=== PATIENT | male | born 1995 | race American Indian/Alaskan Native ===

== ENCOUNTER 2020-04-16 16:16 | Emergency (ER) | payer SELFPAY ==
[2020-04-16 16:37] VITALS: BP 136/74
--- NOTE | 2020-04-16 18:33 | Emergency Department Report ---
- General Chief complaint: Skin/Abscess/Foreign Body Stated complaint: ABSCESS BUTTOCK Time Seen by Provider: 04/16/20 17:58 Source: patient Mode of arrival: Ambulatory Limitations: No Limitations - History of Present Illness Initial comments: Patient is a 25-year-old male who presents emergency room with complaints of recurrent gluteal abscess. He states that 2 months ago he had an incision and drainage performed at [facility]. He states that he is still noticing small amounts of drainage. He denies any increase in pain or increase in swelling. He denies any fever or vomiting. He states that it has improved since he initially had it but states he just still notices the drainage. No past medical history. No allergies to medications. - Related Data Previous Rx's Medication Instructions Recorded Last Taken Type Doxycycline Hyclate [Doxycycline 100 mg PO BID 7 Days #14 tablet 04/16/20 Unknown Rx Hyclate TAB] Allergies Allergy/AdvReac Type Severity Reaction Status Date / Time No Known Allergies Allergy Unverified 04/16/20 16:37 Abscess Boil HPI - HPI Chief Complaint: Skin/Abscess/Foreign Body Stated Complaint: ABSCESS BUTTOCK Time Seen by Provider: 04/16/20 17:58 Home Medications: Previous Rx's Medication Instructions Recorded Last Taken Type Doxycycline Hyclate [Doxycycline 100 mg PO BID 7 Days #14 tablet 04/16/20 Unknown Rx Hyclate TAB] Allergies/Adverse Reactions: Allergies Allergy/AdvReac Type Severity Reaction Status Date / Time No Known Allergies Allergy Unverified 04/16/20 16:37 ED Review of Systems ROS: Stated complaint: ABSCESS BUTTOCK Other details as noted in HPI Comment: All other systems reviewed and negative ED Past Medical Hx - Social History Smoking Status: Current Every Day Smoker Substance Use Type: Alcohol - Medications Home Medications: Home Medications Medication Instructions Recorded Confirmed Last Taken Type Doxycycline Hyclate [Doxycycline 100 mg PO BID 7 Days #14 tablet 04/16/20 Unknown Rx Hyclate TAB] ED Physical Exam - General Limitations: No Limitations General appearance: alert, in no apparent distress - Head Head exam: Present: atraumatic, normocephalic - Eye Eye exam: Present: normal appearance - ENT ENT exam: Present: mucous membranes moist - Rectal Rectal exam: Present: other (product development assistant: denise, there is a small 2 cm area of induration present to the right gluteal region, there is already two openings present, able to manually express small amount of drainage, no obvious significant area of flutuance, does not involve the perirectal region or the perineum/scrotum region) - Neurological Exam Neurological exam: Present: alert, oriented X3 - Psychiatric Psychiatric exam: Present: normal affect, normal mood - Skin Skin exam: Present: warm, dry ED Course Vital Signs 04/16/20 16:33 Temperature 97.8 F Pulse Rate 90 Respiratory 20 Rate Blood Pressure 136/74 O2 Sat by Pulse 98 Oximetry ED Medical Decision Making - Medical Decision Making Patient is a 25-year-old male who presents emergency room with complaints of recurrent gluteal abscess. He states that 2 months ago he had an incision and drainage performed at [facility]. He states that he is still noticing small amounts of drainage. He denies any increase in pain or increase in swelling. He denies any fever or vomiting. He states that it has improved since he initially had it but states he just still notices the drainage. No past medical history. No allergies to medications. VSS. on exam: product development assistant: denise, there is a small 2 cm area of induration present to the right gluteal region, there is already two openings present, able to manually express small amount of drainage, no obvious significant area of flutuance, does not involve the perirectal region or the perineum/scrotum region. It appears to already have openings with small amount of drainage, does not need I&D at this time, no significant surrounding cellulitis. Discussed with patient that he would need to have the area reexamined within the next 2 to 3 days. Patient given prescription for doxycycline. Advised patient Please take medication as prescribed. Please do warm compresses 3-5 times a day. Please soak and Epson salt. Follow-up with a primary care doctor. Follow-up with a general surgeon. Return to emergency room immediately for any new or worsening symptoms. Critical care attestation.: If time is entered above; I have spent that time in minutes in the direct care of this critically ill patient, excluding procedure time. ED Disposition Clinical Impression: Gluteal abscess Disposition: DC-01 TO HOME OR SELFCARE Is pt being admited?: No Does the pt Need Aspirin: No Condition: Stable Instructions: Abscess (ED) Additional Instructions: Please take medication as prescribed. Please do warm compresses 3-5 times a day. Please soak and Epson salt. Follow-up with a primary care doctor. Follow-up with a general surgeon. Return to emergency room immediately for any new or worsening symptoms. Prescriptions: Doxycycline Hyclate [Doxycycline Hyclate TAB] 100 mg PO BID 7 Days #14 tablet Referrals: GERI CM MD [Staff Physician] - 2-3 Days [facility] [Provider Group] - 2-3 Days NIKI MARINELLI DO [Staff Physician] - 2-3 Days Forms: Work/School Release Form(ED) Time of Disposition: 18:27 Print Language: NEPALI
== END 2020-04-16 18:40 | disposition home or self-care (01) ==
LOC: ED 16:16
DX: L02.31 Cutaneous abscess of buttock (principal); F17.200 Nicotine dependence, unspecified, uncomplicated; Z79.899 Other long term (current) drug therapy
CPT/HCPCS: 99282

== ENCOUNTER 2020-06-22 15:15 | Emergency (ER) | payer SELFPAY ==
[2020-06-22 15:33] VITALS: BP 122/87
--- NOTE | 2020-06-22 19:18 | Emergency Department Report ---
Abscess Boil HPI - HPI Chief Complaint: Skin/Abscess/Foreign Body Stated Complaint: ABCESS Time Seen by Provider: 06/22/20 18:49 Duration: 2 Days Location: Other (left buttock) Severity: Mild History: Yes Pain, No Fever, No Purulent Drainage, No Numbness, No Foreign Body, No Previous History, No Insect Bite HPI: This is a 25-year-old male nontoxic, well nourished in appearance, no acute signs of distress presents to the ED with c/o of pain with some swelling to right sided buttock area x 2 days. Patient denies any pus or drainage. Patient denies any fever, chills, nausea, vomiting, chest pain, shortness of breath, headache or stiff neck. Patient denies any allergies or significant past medical history. Home Medications: Previous Rx's Medication Instructions Recorded Last Taken Type Doxycycline Hyclate [Doxycycline 100 mg PO BID 7 Days #14 tablet 04/16/20 Unknown Rx Hyclate TAB] Amoxicillin/K Clav Tab [Augmentin 1 tab PO Q12HR #20 tab 06/22/20 Unknown Rx 875 mg] Allergies/Adverse Reactions: Allergies Allergy/AdvReac Type Severity Reaction Status Date / Time No Known Allergies Allergy Unverified 04/16/20 16:37 ED Review of Systems ROS: Stated complaint: ABCESS Other details as noted in HPI Constitutional: denies: chills, fever Eyes: denies: eye pain, eye discharge, vision change ENT: denies: ear pain, throat pain Respiratory: denies: cough, shortness of breath, wheezing Cardiovascular: denies: chest pain, palpitations Endocrine: no symptoms reported Gastrointestinal: denies: abdominal pain, nausea, diarrhea Genitourinary: denies: urgency, dysuria Musculoskeletal: denies: back pain, joint swelling, arthralgia Skin: denies: rash, lesions Neurological: denies: headache, weakness, paresthesias Psychiatric: denies: anxiety, depression Hematological/Lymphatic: denies: easy bleeding, easy bruising ED Past Medical Hx - Past Medical History Previous Medical History?: No - Surgical History Past Surgical History?: No - Social History Smoking Status: Current Every Day Smoker Substance Use Type: Alcohol - Medications Home Medications: Home Medications Medication Instructions Recorded Confirmed Last Taken Type Doxycycline Hyclate [Doxycycline 100 mg PO BID 7 Days #14 tablet 04/16/20 Unknown Rx Hyclate TAB] Amoxicillin/K Clav Tab [Augmentin 1 tab PO Q12HR #20 tab 06/22/20 Unknown Rx 875 mg] ED Abscess Boil Physical Exam - Exam General: Vital signs noted. No distress. Alert and acting appropriately. Front/Back of Body, Lg (Color): 1 - 1 cm swelling and tenderness. No induration or flutance noted on exam. Size: 1 cm Exam: Yes Tenderness, Yes Normal Neurologic Exam, Yes Normal Circulation, No Fluctuance, No Surrounding Cellulites/Erythema, No Lymphangitis, No Crepitation, No Heart Murmur ED Course Vital Signs 06/22/20 15:31 Temperature 99.0 F Pulse Rate 80 Respiratory 18 Rate Blood Pressure 122/87 [Right] O2 Sat by Pulse 96 Oximetry - Reevaluation(s) Reevaluation #1: 06/22/20 19:15 Patient is speaking in full sentences with no signs of distress noted. Critical care attestation.: If time is entered above; I have spent that time in minutes in the direct care of this critically ill patient, excluding procedure time. ED Medical Decision Making - Medical Decision Making This is a 25-year-old male that presents with right buttock abscess formation. Patient is stable and was examined by me. There is no induration, fluctuance. There is slight swelling that is about 1 cm but is hard. I will discharge patient with clindamycin. Patient was educated of the abscess formation and to return to emergency room as was possible if abscess does occur which needs to be lanced. Patient was referred to Follow-up with a primary care doctor in 3-5 days or if symptoms worsen and continue return to emergency room as soon as possible. At time of discharge, the patient does not seem toxic or ill in appearance. No acute signs of distress noted. Patient agrees to discharge treatment plan of care. No further questions noted by the patient. ED Disposition Clinical Impression: Abscess of buttock, right Disposition: DC-01 TO HOME OR SELFCARE Is pt being admited?: No Does the pt Need Aspirin: No Condition: Stable Instructions: Skin Abscess, [id number] Additional Instructions: Follow-up with a primary care doctor in 3-5 days or if symptoms worsen and continue return to emergency room as soon as possible. Prescriptions: Amoxicillin/K Clav Tab [Augmentin 875 mg] 1 tab PO Q12HR #20 tab Referrals: PRIMARY CAREMD [Primary Care Provider] - 3-5 Days GERI CM MD [Staff Physician] - 3-5 Days Forms: Work/School Release Form(ED) Time of Disposition: 19:26
== END 2020-06-22 20:15 | disposition home or self-care (01) ==
LOC: ED 15:15
DX: L02.31 Cutaneous abscess of buttock (principal); F17.200 Nicotine dependence, unspecified, uncomplicated
CPT/HCPCS: 99282

== ENCOUNTER 2020-08-30 15:21 | Emergency (ER) | payer SELFPAY ==
[2020-08-30 15:36] VITALS: BP 119/92
--- NOTE | 2020-08-30 15:57 | Emergency Department Report ---
ED General Adult HPI - General Chief complaint: Skin/Abscess/Foreign Body Stated complaint: ABCESS ON BUTTOCK/PAIN Time Seen by Provider: 08/30/20 15:47 Source: patient Mode of arrival: Ambulatory Limitations: No Limitations - History of Present Illness Initial comments: This very pleasant 25-year-old male presents the emergency department chief complaint of a draining wound on his buttocks. Patient reports he had a similar wound 6 months ago that required incision and drainage. He denies any associated fever, chills, night sweats, headache, dizziness, blurry vision, nausea,, diarrhea, chest pain or shortness of breath or any other associated symptoms. He does report he has had rectal intercourse recently. He denies any bleeding. He denies any discharge. - Related Data Previous Rx's Medication Instructions Recorded Last Taken Type Doxycycline Hyclate [Doxycycline 100 mg PO BID 7 Days #14 tablet 04/16/20 Unknown Rx Hyclate TAB] Amoxicillin/K Clav Tab [Augmentin 1 tab PO Q12HR #20 tab 06/22/20 Unknown Rx 875 mg] Clindamycin [Clindamycin CAP] 300 mg PO Q8H #30 cap 08/30/20 Unknown Rx Naproxen [Naprosyn TAB] 500 mg PO BID #20 tablet 08/30/20 Unknown Rx Allergies Allergy/AdvReac Type Severity Reaction Status Date / Time No Known Allergies Allergy Unverified 04/16/20 16:37 ED Review of Systems ROS: Stated complaint: ABCESS ON BUTTOCK/PAIN Other details as noted in HPI Comment: All other systems reviewed and negative Constitutional: denies: chills, fever Eyes: denies: eye pain, eye discharge, vision change ENT: denies: ear pain, throat pain Respiratory: denies: cough, shortness of breath, wheezing Cardiovascular: denies: chest pain, palpitations Endocrine: no symptoms reported Gastrointestinal: denies: abdominal pain, nausea, diarrhea Genitourinary: denies: urgency, dysuria Musculoskeletal: denies: back pain, joint swelling, arthralgia Skin: denies: rash, lesions Neurological: denies: headache, weakness, paresthesias Psychiatric: denies: anxiety, depression Hematological/Lymphatic: denies: easy bleeding, easy bruising ED Past Medical Hx - Past Medical History Previous Medical History?: No - Surgical History Past Surgical History?: No - Social History Smoking Status: Never Smoker Substance Use Type: None - Medications Home Medications: Home Medications Medication Instructions Recorded Confirmed Last Taken Type Doxycycline Hyclate [Doxycycline 100 mg PO BID 7 Days #14 tablet 04/16/20 Unknown Rx Hyclate TAB] Amoxicillin/K Clav Tab [Augmentin 1 tab PO Q12HR #20 tab 06/22/20 Unknown Rx 875 mg] Clindamycin [Clindamycin CAP] 300 mg PO Q8H #30 cap 08/30/20 Unknown Rx Naproxen [Naprosyn TAB] 500 mg PO BID #20 tablet 08/30/20 Unknown Rx ED Physical Exam - General Limitations: No Limitations General appearance: alert, in no apparent distress - Head Head exam: Present: atraumatic, normocephalic - Eye Eye exam: Present: normal appearance, PERRL, EOMI Pupils: Present: normal accommodation - ENT ENT exam: Present: normal exam, normal orophraynx, mucous membranes moist - Neck Neck exam: Present: normal inspection, full ROM. Absent: tenderness, meningismus - Respiratory Respiratory exam: Present: normal lung sounds bilaterally. Absent: respiratory distress, wheezes, rales, rhonchi, stridor - Cardiovascular Cardiovascular Exam: Present: regular rate, normal rhythm, normal heart sounds. Absent: systolic murmur, diastolic murmur, rubs, gallop - GI/Abdominal GI/Abdominal exam: Present: soft, normal bowel sounds. Absent: distended, tenderness, guarding, rebound, rigid - Rectal Rectal exam: Present: other (There is a area of induration just laterally to the rectum on the right. There is no open wounds. There is no drainage. There is no fluctuance. There are no hemorrhoids.) - Extremities Exam Extremities exam: Present: normal inspection - Back Exam Back exam: Present: normal inspection - Neurological Exam Neurological exam: Present: alert, oriented X3 - Psychiatric Psychiatric exam: Present: normal affect, normal mood - Skin Skin exam: Present: warm, dry, intact, normal color. Absent: rash ED Course Vital Signs 08/30/20 15:33 Temperature 98.3 F Pulse Rate 61 Respiratory 18 Rate Blood Pressure 119/92 O2 Sat by Pulse 100 Oximetry ED Medical Decision Making - Medical Decision Making Patient nontoxic in no acute distress. Vital signs are stable. Abdominal exam is benign. Patient had some mild possible cellulitis versus early abscess versus fistula the perirectal area on the right. I did offer to do imaging on this however the patient politely declined and preferred antibiotics, sitz bath and outpatient follow-up with colorectal surgeon. Agree with this plan and the patient was educated about return precaution including fever, severe abdominal pain, or any other changing worsening symptoms. He verbalized understand the diagnosis, treatment plan and follow-up instructions all his questions were answered. - Differential Diagnosis abscess, cellulitis, fistula Critical care attestation.: If time is entered above; I have spent that time in minutes in the direct care of this critically ill patient, excluding procedure time. ED Disposition Clinical Impression: Rectal pain, Cellulitis of buttock, right Disposition: DC-01 TO HOME OR SELFCARE Is pt being admited?: No Condition: Stable Instructions: Cellulitis, Adult Prescriptions: Clindamycin [Clindamycin CAP] 300 mg PO Q8H #30 cap Naproxen [Naprosyn TAB] 500 mg PO BID #20 tablet Referrals: TOSIN ERAZO MD [Referring] - 3-5 Days Time of Disposition: 15:56
== END 2020-08-30 16:44 | disposition home or self-care (01) ==
LOC: ED 15:21
DX: L03.317 Cellulitis of buttock (principal); K62.89 Other specified diseases of anus and rectum; Z79.899 Other long term (current) drug therapy
CPT/HCPCS: 99282

== ENCOUNTER 2020-10-26 16:59 | Emergency (ER) | payer SELFPAY ==
[2020-10-26 18:17] VITALS: BP 120/77
--- NOTE | 2020-10-26 18:44 | Event Note ---
ED Screening Note Date of service: 10/26/20 Time: 18:35 ED Screening Note: 25-year-old male patient with recurrent abscesses presents to emergency department complaints of multiple abscesses to his gluteal area for the last week. Patient states he has not been on antibiotics in over 1 month. Last antibiotic was clindamycin. He has been instructed to follow-up with a surgeon but has not done so due to financial constraints. General: Awake, appropriately interactive, no acute distress. Neck: Supple. Full range of motion intact. Cardiovascular: Normal peripheral perfusion. Pulmonary: No respiratory distress. Patient is speaking normally without use of accessory muscles. Skin: No apparent rashes or lesions. Neurological: No facial asymmetry. Speech is clear. Follows commands. Patient is alert and oriented. Musculoskeletal: Moves all four extremities spontaneously with normal range of motion. Psych: Cooperative. Appropriate mood and affect. I have greeted and performed a focused rapid initial assessment of this patient. A comprehensive ED assessment and evaluation of the patient, analysis of all test results, and completion of the medical decision-making process will be conducted by additional ED providers. This initial assessment/diagnostic orders/clinical plan/treatment(s) is/are subject to change based on patients health status, clinical progression and re-assessment. Further treatment and workup at subsequent clinical provider's discretion. Patient/guardian urged not to elope from the ED as their condition may be serious if not clinically assessed and managed.
== END 2020-10-26 19:30 | disposition left against medical advice (07) ==
LOC: ED 16:59
DX: L02.31 Cutaneous abscess of buttock (principal); Z53.21 Procedure and treatment not carried out due to patient leaving prior to being seen by health care provider

== ENCOUNTER 2020-10-27 16:44 | Emergency (ER) | payer SELFPAY ==
[2020-10-27 17:28] VITALS: BP 122/82
--- NOTE | 2020-10-27 18:54 | Emergency Department Report ---
- General Chief complaint: Skin/Abscess/Foreign Body Stated complaint: DRAIN IN ABSCESS Time Seen by Provider: 10/27/20 18:45 Source: patient Mode of arrival: Ambulatory Limitations: No Limitations - History of Present Illness Initial comments: 25-year-old male presents to the ER today complaining of a tender swollen area to his left buttocks. Patient reports history of abscesses in the same area. He states that the one on the left buttocks flared up about a week and a half ago. States that it started as a small bump but has since an increase in size and has become painful. He denies drainage from that area. Patient states that he has a draining area to his right inner buttocks but he has had this intermittently for the past 1 year. He states that the drainage has been blood- tinged yellow. He states that he was told in the past that he needs surgery on that site but has not been able to follow-up. He denies any pain to the area just the drainage. He denies any fever or chills. He denies any known history of MRSA. He denies any other significant past history. MD complaint: abscess/boil -: week(s) (1.5) - Related Data Previous Rx's Medication Instructions Recorded Last Taken Type Doxycycline Hyclate [Doxycycline 100 mg PO BID 7 Days #14 tablet 04/16/20 Un known Rx Hyclate TAB] Amoxicillin/K Clav Tab [Augmentin 1 tab PO Q12HR #20 tab 06/22/20 Unknown Rx 875 mg] Naproxen [Naprosyn TAB] 500 mg PO BID #20 tablet 08/30/20 Unknown Rx Clindamycin [Clindamycin CAP] 300 mg PO Q6H #40 cap 10/27/20 Unknown Rx Ibuprofen [Motrin] 800 mg PO Q8HR PRN #30 tablet 10/27/20 Unknown Rx Allergies Allergy/AdvReac Type Severity Reaction Status Date / Time No Known Allergies Allergy Verified 10/26/20 18:11 Abscess Boil HPI - HPI Chief Complaint: Skin/Abscess/Foreign Body Stated Complaint: DRAIN IN ABSCESS Time Seen by Provider: 10/27/20 18:45 Home Medications: Previous Rx's Medication Instructions Recorded Last Taken Type Doxycycline Hyclate [Doxycycline 100 mg PO BID 7 Days #14 tablet 04/16/20 Unknown Rx Hyclate TAB] Amoxicillin/K Clav Tab [Augmentin 1 tab PO Q12HR #20 tab 06/22/20 Unknown Rx 875 mg] Naproxen [Naprosyn TAB] 500 mg PO BID #20 tablet 08/30/20 Unknown Rx Clindamycin [Clindamycin CAP] 300 mg PO Q6H #40 cap 10/27/20 Unknown Rx Ibuprofen [Motrin] 800 mg PO Q8HR PRN #30 tablet 10/27/20 Unknown Rx Allergies/Adverse Reactions: Allergies Allergy/AdvReac Type Severity Reaction Status Date / Time No Known Allergies Allergy Verified 10/26/20 18:11 ED Review of Systems ROS: Stated complaint: DRAIN IN ABSCESS Other details as noted in HPI Comment: All other systems reviewed and negative Eyes: denies: eye pain, eye discharge, vision change ENT: denies: ear pain, throat pain, dental pain, hearing loss, epistaxis Respiratory: denies: cough, shortness of breath, wheezing Cardiovascular: denies: chest pain, palpitations Gastrointestinal: denies: abdominal pain, nausea, diarrhea Genitourinary: denies: urgency, dysuria Musculoskeletal: denies: back pain, joint swelling, arthralgia Skin: lesions, other (Abscess) ED Past Medical Hx - Past Medical History Previous Medical History?: No - Surgical History Past Surgical History?: No - Social History Smoking Status: Never Smoker Substance Use Type: None - Medications Home Medications: Home Medications Medication Instructions Recorded Confirmed Last Taken Type Doxycycline Hyclate [Doxycycline 100 mg PO BID 7 Days #14 tablet 04/16/20 Unknown Rx Hyclate TAB] Amoxicillin/K Clav Tab [Augmentin 1 tab PO Q12HR #20 tab 06/22/20 Unknown Rx 875 mg] Naproxen [Naprosyn TAB] 500 mg PO BID #20 tablet 08/30/20 Unknown Rx Clindamycin [Clindamycin CAP] 300 mg PO Q6H #40 cap 10/27/20 Unknown Rx Ibuprofen [Motrin] 800 mg PO Q8HR PRN #30 tablet 10/27/20 Unknown Rx ED Physical Exam - General Limitations: No Limitations General appearance: alert, in no apparent distress - Respiratory Respiratory exam: Present: normal lung sounds bilaterally. Absent: respiratory distress - Cardiovascular Cardiovascular Exam: Present: regular rate, normal rhythm, normal heart sounds - GI/Abdominal GI/Abdominal exam: Present: soft. Absent: distended, tenderness, guarding - Rectal Rectal exam: Present: other (Approximately 5 cm x 2 cm tender indurated area noted to left perianal; no apparent cellulitis; does not extend into the rectum; right perianal area shows 2 small scarred area from previous I&D; no induration or fluctuance; no tenderness to palpation; no drainage) - Neurological Exam Neurological exam: Present: alert, oriented X3, CN II-XII intact, normal gait ED Course Vital Signs 10/27/20 17:25 Temperature 98.5 F Pulse Rate 96 H Respiratory 16 Rate Blood Pressure 122/82 O2 Sat by Pulse 97 Oximetry - I & D Left Buttocks Type of Procedure: Simple Site: left le-anal area Blade Size: 11 I & D Procedure: betadine prep, gauze wick placed Progress: Patient tolerated the procedure well without any complications. Critical care attestation.: If time is entered above; I have spent that time in minutes in the direct care of this critically ill patient, excluding procedure time. ED Disposition Clinical Impression: Perirectal abscess Disposition: - TO HOME OR SELFCARE Is pt being admited?: No Does the pt Need Aspirin: No Condition: Stable Instructions: Skin Abscess, [id number] Additional Instructions: Take the antibiotics as prescribed. Return to ED or f/u with PCP in 2-3 days for packing removal. Return sooner if area is worsening. Prescriptions: Clindamycin [Clindamycin CAP] 300 mg PO Q6H #40 cap Ibuprofen [Motrin] 800 mg PO Q8HR PRN #30 tablet PRN Reason: Pain Referrals: GERI CM MD [Staff Physician] - 3-5 Days Forms: Work/School Release Form(ED) Time of Disposition: 20:13
[2020-10-27] MEDS ORDERED: LIDOCAINE (1%) 10 MG/1 ML VIAL 20 ML MDV INFILTRATI ONE (19:52)
== END 2020-10-27 20:29 | disposition home or self-care (01) ==
LOC: ED 16:44
DX: K61.1 Rectal abscess (principal); Z79.899 Other long term (current) drug therapy
CPT/HCPCS: 87116; 99282

== ENCOUNTER 2020-10-29 19:21 | Emergency (ER) | payer SELFPAY ==
[2020-10-29 20:41] VITALS: BP 103/69
--- NOTE | 2020-10-29 20:50 | Emergency Department Report ---
Chief Complaint: Laceration/Recheck/Suture Stated Complaint: WOUND CHECK;ABSCESS Time Seen by Provider: 10/29/20 20:42 - HPI History of Present Illness: 25-year-old male patient presents emergency department for wound reevaluation. Patient states he underwent incision and drainage 2 days ago and was instructed to return to the emergency department in 48 hours to have the packing removed. States his pain has improved. He has been compliant with his antibiotic medica tion regimen. No new complaints. - ROS Review of Systems: GENERAL: Negative for fever. CARDIOVASCULAR: Negative for chest pain. PULMONARY: Negative for shortness of breath. GASTROINTESTINAL: Negative for abdominal pain. MUSCULOSKELETAL: Negative for back pain. NEUROLOGICAL: Negative for headache. INTEGUMENTARY: Positive for abscess. - Exam Vital Signs: Vital Signs 10/29/20 20:40 Temperature 98.3 F Pulse Rate 67 Respiratory 20 Rate Blood Pressure 103/69 [Right] O2 Sat by Pulse 99 Oximetry Physical Exam: General: Awake, appropriately interactive, no acute distress. Neck: Supple. Full range of motion intact. Cardiovascular: Normal peripheral perfusion. Pulmonary: No respiratory distress. Patient is speaking normally without use of accessory muscles. 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 Left perirectal abscess status post incision and drainage with wound packing in place. Neurological: No facial asymmetry. Speech is clear. Follows commands. Patient is alert and oriented. Musculoskeletal: Moves all four extremities spontaneously with normal range of motion. Psych: Cooperative. Appropriate mood and affect. MSE screening note: Focused history and physical exam performed. Due to findings the following was ordered: ED Medical Decision Making - Medical Decision Making Patient presents emergency department for wound recheck. Underwent incision and drainage of perirectal abscess 2 days ago. No new complaints. States his pain has improved since undergoing the procedure. Packing removed without complications. Patient was advised that the infection may continue to drain on its own. Emphasized importance of continuing to adhere to previously prescribed antibiotic regimen and follow-up with primary care provider this week. Patient expressed understanding is agreeable to plan of care. Strict return precautions provided. ED Disposition for MSE Clinical Impression: Perirectal abscess Disposition: MED SCREENING EXAM-LEFT Is pt being admited?: No Does the pt Need Aspirin: No Condition: Stable Instructions: Anorectal Abscess Additional Instructions: Continue taking antibiotics as directed. Apply warm compresses to the affected area 3 times daily. Warm Sitz baths recommended. Follow-up with Dr. Bowser, primary care provider, within 3 days. Call tomorrow to schedule an appointment. Return to the emergency department immediately for new or worsening symptoms. Referrals: GERI BOWSER MD [Staff Physician] - 3-5 Days Time of Disposition: 20:50
== END 2020-10-29 21:00 | disposition left against medical advice (07) ==
LOC: ED 19:21
DX: K61.1 Rectal abscess (principal); Z53.21 Procedure and treatment not carried out due to patient leaving prior to being seen by health care provider

== ENCOUNTER 2021-02-07 17:34 | Inpatient (IN) | payer OTHER ==
--- NOTE | 2021-02-07 18:05 | Event Note ---
ED Screening Note Date of service: 02/07/21 Time: 18:04 ED Screening Note: 26-year-old male patient presents to the emergency department via EMS with complaints of right-sided chest pain starting approximately 1 hour ago. No recent fall, trauma, or injury. Describes the pain as "sharp," non-radiating, localized to the right side of his chest, worse with deep inhalation. No history of hypertension, diabetes, hyperlipidemia. No history of tobacco use. No family history of early heart disease. No venous thromboembolism risk factors identified on history. General: Awake, appropriately interactive, no acute distress. Neck: Supple. Full range of motion intact. Cardiovascular: Normal peripheral perfusion. Pulmonary: No respiratory distress. Patient is speaking normally without use of accessory muscles. Skin: No apparent rashes or lesions. Neurological: No facial asymmetry. Speech is clear. Follows commands. Patient is alert and oriented. Musculoskeletal: Moves all four extremities spontaneously with normal range of motion. Psych: Cooperative. Appropriate mood and affect. EKG and CXR ordered. I have greeted and performed a focused rapid initial assessment of this patient. A comprehensive ED assessment and evaluation of the patient, analysis of all test results, and completion of the medical decision-making process will be conducted by additional ED providers. This initial assessment/diagnostic orders/clinical plan/treatment(s) is/are subject to change based on patients health status, clinical progression and re-assessment. Further treatment and workup at subsequent clinical provider's discretion. Patient/guardian urged not to elope from the ED as their condition may be serious if not clinically assessed and managed.
--- NOTE | 2021-02-07 18:38 | XRay Report ---
CHEST 2 VIEWS INDICATION / CLINICAL INFORMATION: chest pain. COMPARISON: None available. FINDINGS: SUPPORT DEVICES: None. HEART / MEDIASTINUM: No significant abnormality. LUNGS / PLEURA: No significant pulmonary or pleural abnormality. Large left pneumothorax. Minimal rig htward shift of trachea suggestive for tension pneumothorax ADDITIONAL FINDINGS: No significant additional findings. IMPRESSION: 1. Large left pneumothorax IMPORTANT FINDING: Large left pneumothorax with probable mild tension Time of Communication (UNIVERSITY REGISTRAR/CDT): 5:32 PM Central time 02/07/2021 Licensed Practitioner Receiving Report: Dr. Powers Signer Name: Arron Malik MD Signed: 02/07/2021 6:33 PM Workstation Name: [email or web address]
[2021-02-07] MEDS ORDERED: fentaNYL 100 MCG/2 ML INJ IV ONE (18:54)
--- NOTE | 2021-02-07 18:54 | Emergency Department Report ---
ED General Adult HPI - General Chief complaint: Chest Pain Stated complaint: My back hurts, and my left chest hurts PUI?: No Time Seen by Provider: 02/07/21 18:30 Source: patient, EMS ( EMS documentation not available at time of chart dictation ), RN notes reviewed Mode of arrival: Wheelchair Limitations: No Limitations - History of Present Illness Initial comments: The patient is a 26-year-old gentleman. He is not known to myself previously. He states he is right-hand dominant. He denies significant past medical history. He presents to the ER with a complaint of spontaneous left posterior scapular pain, nontraumatic, and left lateral thoracic pain. He denies headache, neck pain, abdominal pain, vomiting, diaphoresis, travel, surgery, immobilization, DVT and pulmonary embolism risk factors. He has never had a pneumothorax before that he is aware of. He has not eaten since last night. He occasionally consumes recreational marijuana. He denies illicit drug use. He denies additional injuries. No additional complaints. -: Sudden Location: back Radiation: other (Left lateral thorax) Quality: aching Consistency: constant Improves with: rest Worsens with: movement Associated Symptoms: denies other symptoms - Related Data Previous Rx's Medication Instructions Recorded Last Taken Type Doxycycline Hyclate [Doxycycline 100 mg PO BID 7 Days #14 tablet 04/16/20 Unknown Rx Hyclate TAB] Amoxicillin/K Clav Tab [Augmentin 1 tab PO Q12HR #20 tab 06/22/20 Unknown Rx 875 mg] Naproxen [Naprosyn TAB] 500 mg PO BID #20 tablet 08/30/20 Unknown Rx Clindamycin [Clindamycin CAP] 300 mg PO Q6H #40 cap 10/27/20 Unknown Rx Ibuprofen [Motrin] 800 mg PO Q8HR PRN #30 tablet 10/27/20 Unknown Rx Allergies Allergy/AdvReac Type Severity Reaction Status Date / Time No Known Allergies Allergy Verified 02/07/21 18:00 ED Review of Systems ROS: Stated complaint: CHEST PAIN Other details as noted in HPI Constitutional: denies: fever Eyes: denies: eye discharge ENT: denies: epistaxis Respiratory: denies: cough Cardiovascular: chest pain Gastrointestinal: denies: nausea, vomiting, diarrhea Musculoskeletal: back pain Psychiatric: anxiety Hematological/Lymphatic: denies: easy bleeding ED Past Medical Hx - Past Medical History Previous Medical History?: No - Surgical History Past Surgical History?: Yes Additional Surgical History: ABSCESS - Social History Smoking Status: Never Smoker Substance Use Type: None - Medications Home Medications: Home Medications Medication Instructions Recorded Confirmed Last Taken Type Doxycycline Hyclate [Doxycycline 100 mg PO BID 7 Days #14 tablet 04/16/20 Unknown Rx Hyclate TAB] Amoxicillin/K Clav Tab [Augmentin 1 tab PO Q12HR #20 tab 06/22/20 Unknown Rx 875 mg] Naproxen [Naprosyn TAB] 500 mg PO BID #20 tablet 08/30/20 Unknown Rx Clindamycin [Clindamycin CAP] 300 mg PO Q6H #40 cap 10/27/20 Unknown Rx Ibuprofen [Motrin] 800 mg PO Q8HR PRN #30 tablet 10/27/20 Unknown Rx ED Physical Exam - General Limitations: No Limitations General appearance: alert, anxious - Head Head exam: Present: atraumatic, normocephalic - Eye Eye exam: Present: normal appearance, EOMI. Absent: nystagmus - ENT ENT exam: Present: normal exam, normal orophraynx, mucous membranes moist, normal external ear exam - Neck Neck exam: Present: normal inspection, full ROM. Absent: tenderness, meningismus - Respiratory Respiratory exam: Present: decreased breath sounds (Decreased breath sounds in the left hemithorax. Breath sounds intact in the right hemithorax). Absent: normal lung sounds bilaterally, respiratory distress, wheezes, rales, rhonchi, stridor, chest wall tenderness - Cardiovascular Cardiovascular Exam: Present: regular rate, normal rhythm, normal heart sounds. Absent: bradycardia, tachycardia, irregular rhythm, systolic murmur, diastolic murmur, rubs, gallop - GI/Abdominal GI/Abdominal exam: Present: soft. Absent: distended, tenderness, guarding, rebound, rigid, pulsatile mass - Rectal Rectal exam: Present: deferred - Extremities Exam Extremities exam: Present: normal inspection, full ROM, other (2+ pulses noted in the bilateral upper and lower extremities. There is no palpable cord. nega tive Homans sign. Muscular compartments are soft. The pelvis is stable.). Absent: pedal edema, calf tenderness - Back Exam Back exam: Present: normal inspection, full ROM. Absent: tenderness, CVA tenderness (R), CVA tenderness (L), paraspinal tenderness, vertebral tenderness - Neurological Exam Neurological exam: Present: alert, oriented X3, other (No facial droop. Tongue midline. Extraocular movements intact bilaterally. Facial sensation intact to light touch in V1, V2, V3 distribution bilaterally. 5 and a 5 strength in 4 extremities. Sensation intact to light touch in 4 extremities.). Absent: motor sensory deficit - Psychiatric Psychiatric exam: Present: anxious - Skin Skin exam: Present: warm, dry, intact, normal color. Absent: rash ED Course Vital Signs 02/07/21 02/07/21 02/07/21 18:02 19:14 19:15 Temperature 98.1 F Pulse Rate 85 75 Pulse Rate [ Intra-Procedure ] Pulse Rate [ Post-Procedure] Pulse Rate [Pre -Procedure] Respiratory 20 15 Rate Respiratory Rate [Intra- Procedure] Respiratory Rate [Post- Procedure] Respiratory Rate [Pre- Procedure] Blood Pressure Blood Pressure [Intra- Procedure] Blood Pressure [Post-Procedure ] Blood Pressure [Pre-Procedure] Blood Pressure 123/73 129/89 [Right] O2 Sat by Pulse 93 100 100 Oximetry O2 Sat by Pulse Oximetry [ Intra-Procedure ] O2 Sat by Pulse Oximetry [Post -Procedure] O2 Sat by Pulse Oximetry [Pre- Procedure] 02/07/21 02/07/21 02/07/21 19:31 19:38 19:45 Temperature Pulse Rate 74 78 Pulse Rate [ 75 Intra-Procedure ] Pulse Rate [ 82 Post-Procedure] Pulse Rate [Pre 74 -Procedure] Respiratory 12 18 Rate Respiratory 14 Rate [Intra- Procedure] Respiratory 12 Rate [Post- Procedure] Respiratory 21 Rate [Pre- Procedure] Blood Pressure 129/89 139/98 Blood Pressure 130/74 [Intra- Procedure] Blood Pressure 130/75 [Post-Procedure ] Blood Pressure 139/98 [Pre-Procedure] Blood Pressure [Right] O2 Sat by Pulse 100 100 Oximetry O2 Sat by Pulse 100 Oximetry [ Intra-Procedure ] O2 Sat by Pulse 100 Oximetry [Post -Procedure] O2 Sat by Pulse 100 Oximetry [Pre- Procedure] 02/07/21 02/07/21 02/07/21 20:01 20:19 20:31 Temperature Pulse Rate 102 H 81 72 Pulse Rate [ Intra-Procedure ] Pulse Rate [ Post-Procedure] Pulse Rate [Pre -Procedure] Respiratory 24 22 16 Rate Respiratory Rate [Intra- Procedure] Respiratory Rate [Post- Procedure] Respiratory Rate [Pre- Procedure] Blood Pressure 130/74 122/77 118/79 Blood Pressure [Intra- Procedure] Blood Pressure [Post-Procedure ] Blood Pressure [Pre-Procedure] Blood Pressure [Right] O2 Sat by Pulse 100 100 100 Oximetry O2 Sat by Pulse Oximetry [ Intra-Procedure ] O2 Sat by Pulse Oximetry [Post -Procedure] O2 Sat by Pulse Oximetry [Pre- Procedure] 02/07/21 20:45 Temperature Pulse Rate 69 Pulse Rate [ Intra-Procedure ] Pulse Rate [ Post-Procedure] Pulse Rate [Pre -Procedure] Respiratory 16 Rate Respiratory Rate [Intra- Procedure] Respiratory Rate [Post- Procedure] Respiratory Rate [Pre- Procedure] Blood Pressure 120/78 Blood Pressure [Intra- Procedure] Blood Pressure [Post-Procedure ] Blood Pressure [Pre-Procedure] Blood Pressure [Right] O2 Sat by Pulse 100 Oximetry O2 Sat by Pulse Oximetry [ Intra-Procedure ] O2 Sat by Pulse Oximetry [Post -Procedure] O2 Sat by Pulse Oximetry [Pre- Procedure] - Reevaluation(s) Reevaluation #1: 02/07/21 21:21 Dr Ant Tovar to admit to [facility] with FOOD SAFETY DIRECTOR Slade Rivera - Chest Tube Chest Tube Location: seventh interspace Size of Haitian Tube (cm): 10 (10.2 fr pigtail) Chest Tube Procedure: betadine prep, sterile drapes applied, sterile dressing applied Anesthesia: 1% Lidocaine w/ Epi Volume Anesthetic (ccs): 10 Leal of Air Ripley: Yes Number of Attempts: 1 Tube Drainage: see nurses notes Tube Sutured to Skin: Yes Post Procedure CXR?: Yes Progress: Patient has not eaten since last night. Patient is ASA 1 on examination. He has no contraindications to pigtail placement. Discussed indications, contraindications, risks and benefits of a left-sided Heimlich valve pigtail placement. Patient provided verbal and written informed consent for 10.2 Haitian pigtail placement. We discussed that if this was not successful, he might require large bore chest tube, and a moderate sedation. Informed consent signed. A timeout was performed. Left hemithorax was anesthetized appropriately, please reference procedure note. The left hemithorax was then prepped and draped in typical sterile fashion. This provider applied maximum sterile barrier precautions. 10.2 Haitian pigtail was placed over the superior aspect of the left seventh rib, and the midclavicular line. The tube was advanced, and sutured into place. It is attached to the Heimlich valve, and then to intermittent suction. Postprocedure x-ray demonstrates reinflation of lung. A CT scan of the chest was obtained to better assess placement of the pigtail catheter. After CT scan of the chest was obtained, the pigtail catheter was retracted 5 cm as per radiology recommendation. The patient tolerated the procedure well. No obvious complications ED Medical Decision Making - Lab Data Result diagrams: 02/07/21 19:06 02/07/21 19:06 Vital Signs 02/07/21 02/07/21 02/07/21 18:02 19:14 19:15 Temperature 98.1 F Pulse Rate 85 75 Pulse Rate [ Intra-Procedure ] Pulse Rate [ Post-Procedure] Pulse Rate [Pre -Procedure] Respiratory 20 15 Rate Respiratory Rate [Intra- Procedure] Respiratory Rate [Post- Procedure] Respiratory Rate [Pre- Procedure] Blood Pressure Blood Pressure [Intra- Procedure] Blood Pressure [Post-Procedure ] Blood Pressure [Pre-Procedure] Blood Pressure 123/73 129/89 [Right] O2 Sat by Pulse 93 100 100 Oximetry O2 Sat by Pulse Oximetry [ Intra-Procedure ] O2 Sat by Pulse Oximetry [Post -Procedure] O2 Sat by Pulse Oximetry [Pre- Procedure] 02/07/21 02/07/21 02/07/21 19:31 19:38 19:45 Temperature Pulse Rate 74 78 Pulse Rate [ 75 Intra-Procedure ] Pulse Rate [ 82 Post-Procedure] Pulse Rate [Pre 74 -Procedure] Respiratory 12 18 Rate Respiratory 14 Rate [Intra- Procedure] Respiratory 12 Rate [Post- Procedure] Respiratory 21 Rate [Pre- Procedure] Blood Pressure 129/89 139/98 Blood Pressure 130/74 [Intra- Procedure] Blood Pressure 130/75 [Post-Procedure ] Blood Pressure 139/98 [Pre-Procedure] Blood Pressure [Right] O2 Sat by Pulse 100 100 Oximetry O2 Sat by Pulse 100 Oximetry [ Intra-Procedure ] O2 Sat by Pulse 100 Oximetry [Post -Procedure] O2 Sat by Pulse 100 Oximetry [Pre- Procedure] 02/07/21 02/07/21 02/07/21 20:01 20:19 20:31 Temperature Pulse Rate 102 H 81 72 Pulse Rate [ Intra-Procedure ] Pulse Rate [ Post-Procedure] Pulse Rate [Pre -Procedure] Respiratory 24 22 16 Rate Respiratory Rate [Intra- Procedure] Respiratory Rate [Post- Procedure] Respiratory Rate [Pre- Procedure] Blood Pressure 130/74 122/77 118/79 Blood Pressure [Intra- Procedure] Blood Pressure [Post-Procedure ] Blood Pressure [Pre-Procedure] Blood Pressure [Right] O2 Sat by Pulse 100 100 100 Oximetry O2 Sat by Pulse Oximetry [ Intra-Procedure ] O2 Sat by Pulse Oximetry [Post -Procedure] O2 Sat by Pulse Oximetry [Pre- Procedure] 02/07/21 20:45 Temperature Pulse Rate 69 Pulse Rate [ Intra-Procedure ] Pulse Rate [ Post-Procedure] Pulse Rate [Pre -Procedure] Respiratory 16 Rate Respiratory Rate [Intra- Procedure] Respiratory Rate [Post- Procedure] Respiratory Rate [Pre- Procedure] Blood Pressure 120/78 Blood Pressure [Intra- Procedure] Blood Pressure [Post-Procedure ] Blood Pressure [Pre-Procedure] Blood Pressure [Right] O2 Sat by Pulse 100 Oximetry O2 Sat by Pulse Oximetry [ Intra-Procedure ] O2 Sat by Pulse Oximetry [Post -Procedure] O2 Sat by Pulse Oximetry [Pre- Procedure] Lab Results 02/07/21 02/07/21 02/07/21 Range/Units 19:06 19:06 19:06 WBC 6.6 (4.5-11.0) K/mm3 RBC 4.82 (3.65-5.03) M/mm3 Hgb 15.0 (11.8-15.2) gm/dl Hct 44.6 (35.5-45.6) % MCV 93 (84-94) fl MCH 31 (28-32) pg MCHC 34 (32-34) % RDW 12.3 L (13.2-15.2) % Plt Count 245 (140-440) K/mm3 PT 13.8 (12.2-14.9) Sec. INR 1.01 (0.87-1.13) APTT 29.4 (24.2-36.6) Sec. Sodium 136 L (137-145) mmol/L Potassium 3.9 (3.6-5.0) mmol/L Chloride 100.2 (98-107) mmol/L Carbon Dioxide 24 (22-30) mmol/L Anion Gap 16 mmol/L BUN 5 L (9-20) mg/dL Creatinine 0.9 (0.8-1.3) mg/dL Estimated GFR > 60 ml/min BUN/Creatinine Ratio 6 % Glucose 87 (75-100) mg/dL Calcium 9.1 (8.4-10.2) mg/dL Magnesium 1.80 (1.7-2.3) mg/dL Total Creatine Kinase 158 (55-170) units/L - EKG Data -: EKG Interpreted by Ct EKG shows normal: sinus rhythm Rate: normal - EKG Data When compared to previous EKG there are: previous EKG unavailable 02/07/21 21:00 EKG interpreted at 18: 0 6 PM Sinus rhythm, with a normal P wave axis. Normal intervals, normal axis, borderline atrial enlargement, early repolarization, minimal motion artifact. T his is an abnormal EKG. This is not a STEMI. - Radiology Data Radiology results: report reviewed, image reviewed CT CHEST WITHOUT CONTRAST INDICATION / CLINICAL INFORMATION: Pneumothorax, status post pigtail placement.. TECHNIQUE: Axial CT images were obtained through the chest without contrast. All CT scans at this location are performed using CT dose reduction for ALARA by means of automated exposure control. COMPARISON: Chest x-ray earlier today FINDINGS: HEART: No significant abnormality. THORACIC AORTA: No significant abnormality. MEDIASTINUM and CECILIA: No significant abnormality.No mediastinal hematoma or pneumomediastinum is seen. LUNGS: No acute air space or interstitial disease. Linear atelectasis left upper, lower lobes and lingula. Right lung clear PLEURA: No significant pleural effusion. There is a tiny left pneumothorax along the medial apical pleural measuring 5 mm image 31 ADDITIONAL FINDINGS: The left pigtail chest tube has its tip near the left medial lung apex and could be pulled back about 5 cm for more optimal placement. UPPER ABDOMEN: No significant abnormality. SKELETAL SYSTEM: No significant abnormality. IMPRESSION: 1. No significant abnormality. Signer Name: Arron Malik MD Signed: 02/07/2021 7:41 PM Workstation Name: [facility] CHEST 2 VIEWS INDICATION / CLINICAL INFORMATION: chest pain. COMPARISON: None available. FINDINGS: SUPPORT DEVICES: None. HEART / MEDIASTINUM: No significant abnormality. LUNGS / PLEURA: No significant pulmonary or pleural abnormality. Large left pneumothorax. Minimal rightward shift of trachea suggestive for tension pneumothorax ADDITIONAL FINDINGS: No significant additional findings. IMPRESSION: 1. Large left pneumothorax IMPORTANT FINDING: Large left pneumothorax with probable mild tension Time of Communication (COMBINATION MACHINE TOOL OPERATOR/CDT): 5:32 PM Central time 02/07/2021 Licensed Practitioner Receiving Report: Dr. Powers Signer Name: Arron Malik MD Signed: 02/07/2021 5:33 PM Workstation Name: [facility] CHEST 1 VIEW 02/07/2021 8:05 PM INDICATION / CLINICAL INFORMATION: s/p ptx and chest tube placement. COMPARISON: Chest x-ray 6:15 PM same day FINDINGS: SUPPORT DEVICES: New small bore left chest tube has been placed. HEART / MEDIASTINUM: No significant abnormality. LUNGS / PLEURA: Mild linear atelectasis left lower lobe. Right lung clear. No residual left pneumothorax visualized. ADDITIONAL FINDINGS: No significant additional findings. IMPRESSION: 1. Interval reexpansion of left lung with no visualized pneumothorax after chest tube placement Signer Name: Arron Malik MD Signed: 02/07/2021 7:21 PM Workstation Name: [facility] - Medical Decision Making Differential diagnosis, including but not limited to: Spontaneous pneumothorax, left-sided Assessment and plan: 26-year-old gentleman, who denies DVT and pulmonary emb olism risk factors, who is low risk by Wells criteria for pulmonary embolism, PERC negative, presenting with left-sided spontaneous pneumothorax, treated appropriate with 10.2 Haitian Heimlich valve, postprocedure x-rays and CT scan demonstrate appropriate placement of tube without significant complication (Heimlich valve pigtail catheter retracted 5 cm as per radiology recommendation), and attached to intermittent suction. Contacted pulmonology on-call, Dr. Wallace I discussed the patient's history, physical, pertinent findings. Pulmonology will follow in consultation. Laboratory studies unremarkable at this time. Hospital physician, Dr. Ant Winters to admit to [facility] I discussed this plan of care with the patient, who verbalized understanding, and who is agreeable to this plan of care. At the moment, he is resting comfortably on his stretcher, in no acute distress, playing on his cellular phone. He gave consent for the details of his medical care to be discussed with family members, but only pertaining to the left-sided pneumothorax and procedures. Critical care attestation.: If time is entered above; I have spent that time in minutes in the direct care of this critically ill patient, excluding procedure time. ED Disposition Clinical Impression: Spontaneous pneumothorax Disposition: 09 OP ADMIT IP TO THIS HOSP Is pt being admited?: Yes Does the pt Need Aspirin: No Condition: Good Referrals: PRIMARY CARE, [Primary Care Provider] - 3-5 Days
[2021-02-07] MEDS ORDERED: LIDOCAINE 2%/EPINEPHRINE 1:100,000 VIAL (20 ML) INFILTRATI ONE (18:55)
[2021-02-07 19:20] LABS: Hematocrit 44.6 % (35.5-45.6); Mean Corpuscular HGB Conc 34 % (32-34); Mean Corpuscular Volume 93 fl (84-94); Platelet Count 245 K/mm3 (140-440); Red Blood Count 4.82 M/mm3 (3.65-5.03); Red Cell Distribution Width 12.3 % (13.2-15.2)
[2021-02-07 19:27] LABS: INR 1.01 (0.87-1.13)
[2021-02-07 19:28] LABS: Partial Thromboplastin Time 29.4 Sec. (24.2-36.6)
[2021-02-07 19:43] LABS: BUN/Creatinine Ratio 6; Blood Urea Nitrogen 5 mg/dL (9-20); Calcium 9.1 mg/dL (8.4-10.2); Hemolysis Index 13
--- NOTE | 2021-02-07 20:26 | XRay Report ---
CHEST 1 VIEW 02/07/2021 8:05 PM INDICATION / CLINICAL INFORMATION: s/p ptx and chest tube placement. COMPARISON: Chest x-ray 6:15 PM same day FINDINGS: SUPPORT DEVICES: New small bore left chest tube has been placed. HEART / MEDIASTINUM: No significant abnormality. LUNGS / PLEURA: Mild linear atelectasis left lower lobe. Right lung clear. No residual left pneumotho rax visualized. ADDITIONAL FINDINGS: No significant additional findings. IMPRESSION: 1. Interval reexpansion of left lung with no visualized pneumothorax after chest tube placement Signer Name: Arron Malik MD Signed: 02/07/2021 8:21 PM Workstation Name: [id number]
[2021-02-07] MEDS ORDERED: ACETAMINOPHEN 325 MG TAB PO PRN (21:41)
[2021-02-07] MEDS ORDERED: ALBUTEROL 2.5 MG/3 ML NEBU IH PRN (21:41)
[2021-02-07] MEDS ORDERED: ONDANSETRON 4 MG/2 ML INJ IV PRN (21:41)
[2021-02-07] MEDS ORDERED: HYDROmorphone 1 MG/1 ML INJ IV PRN (21:43)
[2021-02-07] MEDS ORDERED: NALOXONE 0.4 MG/1 ML INJ IV PRN (21:43)
--- NOTE | 2021-02-07 22:08 | History and Physical Report ---
History of Present Illness Date of examination: 02/07/21 Date of admission: 02/07/2021 Chief complaint: TRAVIS, chest pain History of present illness: 26 -Spanish male with no significant past medical history who presents to [facility] ED with complaints of left-sided thoracic back pain and difficulty completing. Patient states his symptoms began earlier this morning. He works from home and was sitting at his desk started experiencing sharp intermittent 4/10 thoracic pain. Upon standing and walking down the stairs his pain became more intense (now 8/10) and constant. He noticed that it was getting more difficult for him to breathe, he decided to call EMS for further evaluation and treatment. 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) Family history: no significant family history Medications and Allergies Allergies Allergy/AdvReac Type Severity Reaction Status Date / Time No Known Allergies Allergy Verified 02/07/21 18:00 Home Medications Medication Instructions Recorded Confirmed Last Taken Type Doxycycline Hyclate [Doxycycline 100 mg PO BID 7 Days #14 tablet 04/16/20 Unknown Rx Hyclate TAB] Amoxicillin/K Clav Tab [Augmentin 1 tab PO Q12HR #20 tab 06/22/20 Unknown Rx 875 mg] Naproxen [Naprosyn TAB] 500 mg PO BID #20 tablet 08/30/20 Unknown Rx Clindamycin [Clindamycin CAP] 300 mg PO Q6H #40 cap 10/27/20 Unknown Rx Ibuprofen [Motrin] 800 mg PO Q8HR PRN #30 tablet 10/27/20 Unknown Rx Active Meds: Active Medications Acetaminophen (Acetaminophen 325 Mg Tab) 650 mg PO Q4H PRN PRN Reason: Pain MILD(1-3)/Fever >100.5/LESTER Albuterol (Albuterol 2.5 Mg/3 Ml Nebu) 2.5 mg IH Q3HRT PRN PRN Reason: Shortness Of Breath Heparin Sodium (Porcine) (Heparin 5,000 Unit/1 Ml Vial) 5,000 unit SUB-Q Q12HR KAREN Hydromorphone HCl (Hydromorphone 1 Mg/1 Ml Inj) 0.5 mg IV Q3H PRN PRN Reason: Pain , Severe (7-10) Sodium Chloride (Nacl 0.45% 1000 Ml) 1,000 mls @ 75 mls/hr IV DIRECT KAREN Stop: 02/08/21 12:00 Morphine Sulfate (Morphine 2 Mg/1 Ml Inj) 2 mg IV Q4H PRN PRN Reason: Pain, Moderate (4-6) Naloxone HCl (Naloxone 0.4 Mg/1 Ml Inj) 0.1 mg IV Q2MIN PRN PRN Reason: Res Rate </= 8 or 02 SAT < 92% Ondansetron HCl (Ondansetron 4 Mg/2 Ml Inj) 4 mg IV Q6H PRN PRN Reason: Nausea And Vomiting Sodium Chloride (Sodium Chloride 0.9% 10 Ml Flush Syringe) 10 ml IV BID KAREN Sodium Chloride (Sodium Chloride 0.9% 10 Ml Flush Syringe) 10 ml IV PRN PRN PRN Reason: LINE FLUSH Review of Systems All systems: negative (As stated in HPI) Exam - Physical Exam Narrative exam: Physical exam General appearance: Present: No acute distress, alert and oriented x3, well- developed, well-nourished, adult male - EENT Eyes: Present: PERRL, EOM intact ENT: hearing intact, normal dentition - Neck Neck: Present: supple, normal ROM - Respiratory Respiratory effort: Non-labored Respiratory: Slightly decreased to left, otherwise clear throughout, left-sided chest tube present - Cardiovascular Heart rate: 86 (bpm) Rhythm: Sinus rhythm Heart Sounds: Present: S1 & S2. Absent: rub, click - Extremities Extremities: no ischemia, pulses intact, - Peripheral Assessment Peripheral Pulses: within normal limits - Abdominal General gastrointestinal: soft, non-tender, normal bowel sounds - Integumentary Integumentary: Present: warm, dry - Musculoskeletal Musculoskeletal: Able to move all extremities -Neurological Neurological: CN II-XII intact - Psychiatric Psychiatric: Appropriate for situation ,cooperative - Constitutional Vitals: Temp Pulse Resp BP Pulse Ox 98.1 F 86 13 119/79 99 02/07/21 18:02 02/07/21 21:31 02/07/21 21:31 02/07/21 21:31 02/07/21 21:31 Results - Labs CBC & Chem 7: 02/07/21 19:06 02/07/21 19:06 Labs: Laboratory Last Values WBC 6.6 K/mm3 (4.5-11.0) 02/07/21 19:06 RBC 4.82 M/mm3 (3.65-5.03) 02/07/21 19:06 Hgb 15.0 gm/dl (11.8-15.2) 02/07/21 19:06 Hct 44.6 % (35.5-45.6) 02/07/21 19:06 MCV 93 fl (84-94) 02/07/21 19:06 MCH 31 pg (28-32) 02/07/21 19:06 MCHC 34 % (32-34) 02/07/21 19:06 RDW 12.3 % (13.2-15.2) L 02/07/21 19:06 Plt Count 245 K/mm3 (140-440) 02/07/21 19:06 PT 13.8 Sec. (12.2-14.9) 02/07/21 19:06 INR 1.01 (0.87-1.13) 02/07/21 19:06 APTT 29.4 Sec. (24.2-36.6) 02/07/21 19:06 Sodium 136 mmol/L (137-145) L 02/07/21 19:06 Potassium 3.9 mmol/L (3.6-5.0) 02/07/21 19:06 Chloride 100.2 mmol/L (98-107) 02/07/21 19:06 Carbon Dioxide 24 mmol/L (22-30) 02/07/21 19:06 Anion Gap 16 mmol/L 02/07/21 19:06 BUN 5 mg/dL (9-20) L 02/07/21 19:06 Creatinine 0.9 mg/dL (0.8-1.3) 02/07/21 19:06 Estimated GFR > 60 ml/min 02/07/21 19:06 BUN/Creatinine Ratio 6 % 02/07/21 19:06 Glucose 87 mg/dL (75-100) 02/07/21 19:06 Calcium 9.1 mg/dL (8.4-10.2) 02/07/21 19:06 Magnesium 1.80 mg/dL (1.7-2.3) 02/07/21 19:06 Total Creatine Kinase 158 units/L (55-170) 02/07/21 19:06 - Imaging and Cardiology Imaging and Cardiology: Initial CXR; FINDINGS: SUPPORT DEVICES: None. HEART / MEDIASTINUM: No significant abnormal ity. LUNGS / PLEURA: No significant pulmonary or pleural abnormality. Large left pneumothorax. Minimal rightward shift of trachea suggestive for tension pneumothorax ADDITIONAL FINDINGS: No significant additional findings. IMPRESSION: 1. Large left pneumothorax Repeat CXR: FINDINGS: SUPPORT DEVICES: New small bore left chest tube has been placed. HEART / MEDIASTINUM: No significant abnormality. LUNGS / PLEURA: Mild linear atelectasis left lower lobe. Right lung clear. No residual left pneumothorax visualized. ADDITIONAL FINDINGS: No significant additional findings. IMPRESSION: 1. Interval reexpansion of left lung with no visualized pneumothorax after chest tube placement CT Chest: CT CHEST WITHOUT CONTRAST INDICATION / CLINICAL INFORMATION: Pneumothorax, status post pigtail placement.. TECHNIQUE: Axial CT images were obtained through the chest without contrast. All CT scans at this location are performed using CT dose reduction for ALARA by means of automated exposure control. COMPARISON: Chest x-ray earlier today FINDINGS: HEART: No significant abnormality. THORACIC AORTA: No significant abnormality. MEDIASTINUM and CECILIA: No significant abnormality.No mediastinal hematoma or pneumomediastinum is seen. LUNGS: No acute air space or interstitial disease. Linear atelectasis left upper, lower lobes and lingula. Right lung clear PLEURA: No significant pleural effusion. There is a tiny left pneumothorax along the medial apical pleural measuring 5 mm image 31 ADDITIONAL FINDINGS: The left pigtail chest tube has its tip near the left medial lung apex and could be pulled back about 5 cm for more optimal placement. UPPER ABDOMEN: No significant abnormality. SKELETAL SYSTEM: No significant abnormality. IMPRESSION: 1. No significant abnormality. Signer Name: Arron Malik MD Signed: 02/07/2021 7:41 PM Assessment and Plan Assessment and plan: Spontaneous left-sided pneumothorax -Initial CXR revealed Large left pneumothorax -Chest Tube placed in ED -Repeat CXR showed reexpansion of left lung with no visualized pneumothorax after chest tube placement -CT Chest negative -Supportive care -Pulmonary (Dr. Wallace) consulted in ED with plans to see pt in am -May require op f/u with pulmonary Difficulty in breathing -Secondary to #1 -Has since resolved since placement of chest tube -Presently on room air with saturation of 100% Marijuana use -Reports chronic marijuana use 3 times per week -Counseled for cessation DVT PPX -On Heparin Advance Directives: No VTE prophylaxis?: Chemical, Mechanical Plan of care discussed with patient/family: Yes
[2021-02-07] MEDS: HEPARIN 5,000 UNIT/1 ML VIAL SUB-Q SCH (22:59)
[2021-02-07] MEDS: SODIUM CHLORIDE 0.45% 1000 ML 1,000 ML IV SCH (23:00)
[2021-02-07] MEDS: MORPHINE 2 MG/1 ML INJ IV PRN (23:03)
[2021-02-08] MEDS: HEPARIN 5,000 UNIT/1 ML VIAL SUB-Q SCH ×2 (09:21→22:06)
[2021-02-08] MEDS: SODIUM CHLORIDE 0.45% 1000 ML 1,000 ML IV SCH (09:26)
[2021-02-08] MEDS: MORPHINE 2 MG/1 ML INJ IV PRN ×3 (10:37→20:25)
--- NOTE | 2021-02-08 10:47 | XRay Report ---
CHEST 1 VIEW INDICATION: SHORTNESS OF BREATH. COMPARISON: Yesterday FINDINGS: Support devices: The left chest tube has been retracted by a few centimeters to the level of the aort ic knob. Heart: Within normal limits. Lungs/Pleura: The lungs are generally clear. Segmental atelectasis at the left lung base has resolved . No appreciable pneumothorax. Additional findings: None. IMPRESSION: No acute findings. Signer Name: Chai Avina Jr, MD Signed: 02/08/2021 10:42 AM Workstation Name: [id number]
--- NOTE | 2021-02-08 11:35 | Progress Note ---
Assessment and Plan Assessment and plan: 26 -[place] male with no significant past medical history who presents to [facility] ED with complaints of left-sided thoracic back pain and difficulty completing. Patient states his symptoms began earlier this morning. He works from home and was sitting at his desk started experiencing sharp intermittent 4/10 thoracic pain. Upon standing and walking down the stairs his pain became more intense (now 8/10) and constant. He noticed that it was getting more difficult for him to breathe, he decided to call EMS for further evaluation and treatment. Denies: Fever, chills, cough, headache, abdominal pain, nausea, vomiting diarrhea, constipation, hematochezia, hemoptysis, history of restrictive airway disease, or recent sick contact Chest x-ray: No acute findings. Prior noted left left pneumothorax resolved. Chest tube retracted to the area of the aortic knob Spontaneous left-sided pneumothorax -Initial CXR revealed Large left pneumothorax -Chest Tube placed in ED -Repeat CXR showed reexpansion of left lung with no visualized pneumothorax after chest tube placement -CT Chest negative -Supportive care -Pulmonary (Dr. Wallace) consulted in ED with plans to see pt in am -May require op f/u with pulmonary Difficulty in breathing -Secondary to #1 -Has since resolved since placement of chest tube -Presently on room air with saturation of 100% Marijuana use -Reports chronic marijuana use 3 times per week -Counseled for cessation DVT PPX -On Heparin 02/08: Surgery consulted to assist with management of chest tube. Repeat chest x-ray shows resolution. Continue to manage pain control. Further plan pending surgery evaluation. Counseling provided to the patient on need to quit nicotine use as he states that he smokes some who. He has a substance percentage of nicotine in it. 50 minutes counseling provided History Interval history: Patient seen and examined this morning still with chest pain. Shortness of breath improved. Hospitalist Physical - Physical exam Narrative exam: VITAL SIGNS: Reviewed. GENERAL: The patient appears normally developed, Vital signs as documented. HEAD: No signs of head trauma. EYES: Pupils are equal. Extraocular motions intact. EARS: Hearing grossly intact. MOUTH: Oropharynx is normal. NECK: No adenopathy, no JVD. CHEST: Chest with clear breath sounds bilaterally. Chest tube to the left side dressing in place tube not connected to-. No wheezes, rales, or rhonchi. CARDIAC: Regular rate and rhythm. S1 and S2, without murmurs, gallops, or rubs. VASCULAR: No Edema. Peripheral pulses normal and equal in all extremities. ABDOMEN: Soft, non tender and non distended. No rebound or guarding, and no masses palpated. Bowel Sounds normal. MUSCULOSKELETAL: Good range of motion of all major joints. Extremities without clubbing, cyanosis or edema. NEUROLOGIC EXAM: Alert and oriented x 3 No focal sensory or strength deficits. Speech normal. Follows commands. PSYCHIATRIC: Mood normal. SKIN: detail exam as documented in skin assessment - Constitutional Vitals: Temp Pulse Resp BP Pulse Ox 98.7 F 76 18 127/82 2 L 02/07/21 23:37 02/08/21 03:31 02/08/21 03:03 02/07/21 23:37 02/08/21 03:31 Results - Labs CBC & Chem 7: 02/07/21 19:06 02/07/21 19:06 Labs: Laboratory Last Values WBC 6.6 K/mm3 (4.5-11.0) 02/07/21 19:06 RBC 4.82 M/mm3 (3.65-5.03) 02/07/21 19:06 Hgb 15.0 gm/dl (11.8-15.2) 02/07/21 19:06 Hct 44.6 % (35.5-45.6) 02/07/21 19:06 MCV 93 fl (84-94) 02/07/21 19:06 MCH 31 pg (28-32) 02/07/21 19:06 MCHC 34 % (32-34) 02/07/21 19:06 RDW 12.3 % (13.2-15.2) L 02/07/21 19:06 Plt Count 245 K/mm3 (140-440) 02/07/21 19:06 PT 13.8 Sec. (12.2-14.9) 02/07/21 19:06 INR 1.01 (0.87-1.13) 02/07/21 19:06 APTT 29.4 Sec. (24.2-36.6) 02/07/21 19:06 Sodium 136 mmol/L (137-145) L 02/07/21 19:06 Potassium 3.9 mmol/L (3.6-5.0) 02/07/21 19:06 Chloride 100.2 mmol/L (98-107) 02/07/21 19:06 Carbon Dioxide 24 mmol/L (22-30) 02/07/21 19:06 Anion Gap 16 mmol/L 02/07/21 19:06 BUN 5 mg/dL (9-20) L 02/07/21 19:06 Creatinine 0.9 mg/dL (0.8-1.3) 02/07/21 19:06 Estimated GFR > 60 ml/min 02/07/21 19:06 BUN/Creatinine Ratio 6 % 02/07/21 19:06 Glucose 87 mg/dL (75-100) 02/07/21 19:06 Calcium 9.1 mg/dL (8.4-10.2) 02/07/21 19:06 Magnesium 1.80 mg/dL (1.7-2.3) 02/07/21 19:06 Total Creatine Kinase 158 units/L (55-170) 02/07/21 19:06 Hall/IV: Voiding Method Urinal Active Medications - Current Medications Current Medications: Generic Name Dose Route Start Last Admin Trade Name Freq PRN Reason Stop Dose Admin Acetaminophen 650 mg 02/07/21 21:41 Acetaminophen 325 Mg Tab PO Q4H PRN Pain MILD(1-3)/Fever >100.5/LESTER Albuterol 2.5 mg 02/07/21 21:41 Albuterol 2.5 Mg/3 Ml Nebu IH Q3HRT PRN Shortness Of Breath Heparin Sodium (Porcine) 5,000 unit 02/07/21 22:00 02/08/21 09:21 Heparin 5,000 Unit/1 Ml Vial SUB-Q 5,000 unit Q12HR KAREN Administration Hydromorphone HCl 0.5 mg 02/07/21 21:43 02/08/21 02:34 Hydromorphone 1 Mg/1 Ml Inj IV 0.5 mg Q3H PRN Administration Pain , Severe (7-10) Sodium Chloride 1,000 mls @ 75 mls/hr 02/07/21 22:00 02/08/21 09:26 Nacl 0.45% 1000 Ml IV 02/08/21 12:00 75 mls/hr DIRECT KAREN Administration Morphine Sulfate 2 mg 02/07/21 21:43 02/08/21 10:37 Morphine 2 Mg/1 Ml Inj IV 2 mg Q4H PRN Administration Pain, Moderate (4-6) Naloxone HCl 0.1 mg 02/07/21 21:43 Naloxone 0.4 Mg/1 Ml Inj IV Q2MIN PRN Res Rate </= 8 or 02 SAT < 92% Ondansetron HCl 4 mg 02/07/21 21:41 Ondansetron 4 Mg/2 Ml Inj IV Q6H PRN Nausea And Vomiting Sodium Chloride 10 ml 02/07/21 22:00 02/08/21 09:22 Sodium Chloride 0.9% 10 Ml Flush Syringe IV 10 ml BID KAREN Administration Sodium Chloride 10 ml 02/07/21 21:41 Sodium Chloride 0.9% 10 Ml Flush Syringe IV PRN PRN LINE FLUSH
--- NOTE | 2021-02-08 12:35 | Electrocardiograph Report ---
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
--- NOTE | 2021-02-08 14:26 | Consultation ---
History of Present Illness Consult date: 02/08/21 Reason for consult: other (chest tube management) - History of present illness History of present illness: 26-year-old male who presented to the emergency room on yesterday with a 1 day history of acute shortness of breath and left-sided chest pain. Patient denies any preceding factors such as trauma. He denies ever having these feelings before. In the emergency room patient had a CAT scan which showed a large left- sided pneumothorax with deviation of his trachea to the right. The ED physician placed a chest tube on the left side with prompt reexpansion of his left lung. Currently the patient says that he feels much better, except he has some discomfort where the chest tube is. Patient denies any previous history of any lung disease or pre-existing conditions. 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) Family history: no significant family history Medications and Allergies Allergies Allergy/AdvReac Type Severity Reaction Status Date / Time No Known Allergies Allergy Verified 02/07/21 18:00 Home Medications Medication Instructions Recorded Confirmed Last Taken Type Doxycycline Hyclate [Doxycycline 100 mg PO BID 7 Days #14 tablet 04/16/20 02/08/21 Unknown Rx Hyclate TAB] Amoxicillin/K Clav Tab [Augmentin 1 tab PO Q12HR #20 tab 06/22/20 02/08/21 Unknown Rx 875 mg] Naproxen [Naprosyn TAB] 500 mg PO BID #20 tablet 08/30/20 02/08/21 Unknown Rx Clindamycin [Clindamycin CAP] 300 mg PO Q6H #40 cap 10/27/20 02/08/21 Unknown Rx Ibuprofen [Motrin] 800 mg PO Q8HR PRN #30 tablet 10/27/20 02/08/21 Unknown Rx Active Meds: Active Medications Acetaminophen (Acetaminophen 325 Mg Tab) 650 mg PO Q4H PRN PRN Reason: Pain MILD(1-3)/Fever >100.5/LESTER Albuterol (Albuterol 2.5 Mg/3 Ml Nebu) 2.5 mg IH Q3HRT PRN PRN Reason: Shortness Of Breath Heparin Sodium (Porcine) (Heparin 5,000 Unit/1 Ml Vial) 5,000 unit SUB-Q Q12HR [facility] Last Admin: 02/08/21 09:21 Dose: 5,000 unit Documented by: Hydromorphone HCl (Hydromorphone 1 Mg/1 Ml Inj) 0.5 mg IV Q3H PRN PRN Reason: Pain , Severe (7-10) Last Admin: 02/08/21 02:34 Dose: 0.5 mg Documented by: Morphine Sulfate (Morphine 2 Mg/1 Ml Inj) 2 mg IV Q4H PRN PRN Reason: Pain, Moderate (4-6) Last Admin: 02/08/21 10:37 Dose: 2 mg Documented by: Naloxone HCl (Naloxone 0.4 Mg/1 Ml Inj) 0.1 mg IV Q2MIN PRN PRN Reason: Res Rate </= 8 or 02 SAT < 92% Ondansetron HCl (Ondansetron 4 Mg/2 Ml Inj) 4 mg IV Q6H PRN PRN Reason: Nausea And Vomiting Sodium Chloride (Sodium Chloride 0.9% 10 Ml Flush Syringe) 10 ml IV BID [facility] Last Admin: 02/08/21 09:22 Dose: 10 ml Documented by: Sodium Chloride (Sodium Chloride 0.9% 10 Ml Flush Syringe) 10 ml IV PRN PRN PRN Reason: LINE FLUSH Review of Systems All systems: negative - Respiratory shortness of breath, pain, pain on inspiration Exam Vital Signs Temp Pulse Resp BP Pulse Ox 98.1 F 85 20 123/73 93 02/07/21 18:02 02/07/21 18:02 02/07/21 18:02 02/07/21 18:02 02/07/21 18:02 - General physical appearance Positive: well developed, no distress, no pain - Respiratory Positive: normal expansion, normal respiratory effort, other (Left-sided pigtail catheter chest tube attached to Heimlich valve.) - Cardiovascular Heart Sounds: Present: S1 & S2 - Extremities Extremities: no ischemia Results - Labs 02/07/21 19:06 02/07/21 19:06 Abnormal lab results 02/07/21 02/07/21 Range/Units 19:06 19:06 RDW 12.3 L (13.2-15.2) % Sodium 136 L (137-145) mmol/L BUN 5 L (9-20) mg/dL Diabetes panel 02/07/21 Range/Units 19:06 Sodium 136 L (137-145) mmol/L Potassium 3.9 (3.6-5.0) mmol/L Chloride 100.2 (98-107) mmol/L Carbon Dioxide 24 (22-30) mmol/L BUN 5 L (9-20) mg/dL Creatinine 0.9 (0.8-1.3) mg/dL Glucose 87 (75-100) mg/dL Calcium 9.1 (8.4-10.2) mg/dL Calcium panel 02/07/21 Range/Units 19:06 Calcium 9.1 (8.4-10.2) mg/dL Pituitary panel 02/07/21 Range/Units 19:06 Sodium 136 L (137-145) mmol/L Potassium 3.9 (3.6-5.0) mmol/L Chloride 100.2 (98-107) mmol/L Carbon Dioxide 24 (22-30) mmol/L BUN 5 L (9-20) mg/dL Creatinine 0.9 (0.8-1.3) mg/dL Glucose 87 (75-100) mg/dL Calcium 9.1 (8.4-10.2) mg/dL Adrenal panel 02/07/21 Range/Units 19:06 Sodium 136 L (137-145) mmol/L Potassium 3.9 (3.6-5.0) mmol/L Chloride 100.2 (98-107) mmol/L Carbon Dioxide 24 (22-30) mmol/L BUN 5 L (9-20) mg/dL Creatinine 0.9 (0.8-1.3) mg/dL Glucose 87 (75-100) mg/dL Calcium 9.1 (8.4-10.2) mg/dL - Imaging Chest x-ray: report reviewed, image reviewed (Pneumothorax resolved on chest x- ray from last night, this morning, and CT of the chest last night.) Assessment and Plan 26-year-old male with spontaneous left-sided pneumothorax with resolution status post placement of left-sided chest tube. Afebrile and stable. Will start patient on incentive spirometer and continue chest tube and Heimlich valve. If does well overnight will repeat chest x-ray in a.m. If chest x-ray in a.m. shows continued reexpansion of lung with no signs of pneumothorax will remove chest tube. In the future if patient requires another spontaneous pneumothorax will need to be referred to cardiothoracic surgery for evaluation and work-up for causality and management.
--- NOTE | 2021-02-08 14:41 | Consultation ---
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) Family history: no significant family history Medications and Allergies Allergies Allergy/AdvReac Type Severity Reaction Status Date / Time No Known Allergies Allergy Verified 02/07/21 18:00 Home Medications Medication Instructions Recorded Confirmed Last Taken Type Doxycycline Hyclate [Doxycycline 100 mg PO BID 7 Days #14 tablet 04/16/20 02/08/21 Unknown Rx Hyclate TAB] Amoxicillin/K Clav Tab [Augmentin 1 tab PO Q12HR #20 tab 06/22/20 02/08/21 Un known Rx 875 mg] Naproxen [Naprosyn TAB] 500 mg PO BID #20 tablet 08/30/20 02/08/21 Unknown Rx Clindamycin [Clindamycin CAP] 300 mg PO Q6H #40 cap 10/27/20 02/08/21 Unknown Rx Ibuprofen [Motrin] 800 mg PO Q8HR PRN #30 tablet 10/27/20 02/08/21 Unknown Rx Active Meds: Active Medications Acetaminophen (Acetaminophen 325 Mg Tab) 650 mg PO Q4H PRN PRN Reason: Pain MILD(1-3)/Fever >100.5/LESTER Albuterol (Albuterol 2.5 Mg/3 Ml Nebu) 2.5 mg IH Q3HRT PRN PRN Reason: Shortness Of Breath Heparin Sodium (Porcine) (Heparin 5,000 Unit/1 Ml Vial) 5,000 unit SUB-Q Q12HR KAREN Last Admin: 02/08/21 09:21 Dose: 5,000 unit Documented by: Hydromorphone HCl (Hydromorphone 1 Mg/1 Ml Inj) 0.5 mg IV Q3H PRN PRN Reason: Pain , Severe (7-10) Last Admin: 02/08/21 02:34 Dose: 0.5 mg Documented by: Morphine Sulfate (Morphine 2 Mg/1 Ml Inj) 2 mg IV Q4H PRN PRN Reason: Pain, Moderate (4-6) Last Admin: 02/08/21 10:37 Dose: 2 mg Documented by: Naloxone HCl (Naloxone 0.4 Mg/1 Ml Inj) 0.1 mg IV Q2MIN PRN PRN Reason: Res Rate </= 8 or 02 SAT < 92% Ondansetron HCl (Ondansetron 4 Mg/2 Ml Inj) 4 mg IV Q6H PRN PRN Reason: Nausea And Vomiting Sodium Chloride (Sodium Chloride 0.9% 10 Ml Flush Syringe) 10 ml IV BID KAREN Last Admin: 02/08/21 09:22 Dose: 10 ml Documented by: Sodium Chloride (Sodium Chloride 0.9% 10 Ml Flush Syringe) 10 ml IV PRN PRN PRN Reason: LINE FLUSH Physical Examination Vital signs: Vital Signs Temp Pulse Resp BP Pulse Ox 98.1 F 85 20 123/73 93 02/07/21 18:02 02/07/21 18:02 02/07/21 18:02 02/07/21 18:02 02/07/21 18:02 Results - Laboratory Findings CBC and BMP: 02/07/21 19:06 02/07/21 19:06 PT/INR, D-dimer PT 13.8 Sec. (12.2-14.9) 02/07/21 19:06 INR 1.01 (0.87-1.13) 02/07/21 19:06 Abnormal lab findings: Abnormal Labs 02/07/21 02/07/21 19:06 19:06 RDW 12.3 L Sodium 136 L BUN 5 L
[2021-02-09] MEDS: MORPHINE 2 MG/1 ML INJ IV PRN ×2 (00:21→05:15)
--- NOTE | 2021-02-09 04:50 | Consultation ---
DATE OF CONSULTATION: 02/08/2021 CONSULTING PHYSICIAN: Dr. Alonso Ro. REASON FOR CONSULTATION: Spontaneous pneumothorax. CHIEF COMPLAINT AND HISTORY OF PRESENT ILLNESS: As follows: The patient is a 26-year-old young male, thin, tall, denies any significant past medical history, states he was at work, really not doing anything, any exertion. He denies doing any Valsalva type maneuvers anything that might have increased his intrathoracic pressures. He states he was sitting at the desk when he developed left upper back pain that he felt was nothing important, however, he said he started getting short of breath, he walked over to the restroom and then could not really move anymore. Again, he denied any previous episodes. He denied any chest wall trauma. He denied any previous chest tubes or other surgery. He came into the emergency room. Evaluation in the emergency room revealed a large left pneumothorax. A chest tube was placed. A discussion was had with the emergency room physician and he was admitted to the floor. We are asked to assist with management. When I stopped by to see him he was rested in bed, denied any significant pain, but he had just received some analgesia. He denies any gross or streaky hemoptysis. This really is as much of the history of presentation as I have. PAST MEDICAL HISTORY: None. PAST SURGICAL HISTORY: Denies. MEDICATIONS: He was on at the time I stopped by to see him were reviewed. Pertinent medications include the following: Tylenol 650 mg p.o. q.4 hours p.r.n. mild pain or fevers, albuterol 2.5 mg nebulized q.3 hours p.r.n. shortness of breath, heparin 5000 units subQ q.12, Dilaudid 0.5 mg IV q.3 hours p.r.n. severe pain, morphine sulfate 2 mg IV q.4 hours p.r.n. moderate pain, p.r.n. naloxone and Zofran 4 mg IV q.6 hours p.r.n. nausea and vomiting. ALLERGIES: No known drug allergies. DIET: Thin gentleman. Denies acute weight loss or gain in the preceding few weeks to months. SOCIAL HISTORY: Lives in the community. Denies alcohol, tobacco or illicit drug use or abuse. FAMILY HISTORY: Otherwise, noncontributory. REVIEW OF SYSTEMS: No loss of consciousness. No new onset seizures. No new onset focal weakness. Denies gross hematochezia or melena. Denies gross hematuria or dysuria. No hematemesis, no hemoptysis, no palpitations. Complete 13 system review of systems obtained. Pertinent positives and/or negatives as in body of history above, otherwise noncontributory. PHYSICAL EXAMINATION: VITAL SIGNS: At presentation, he was afebrile, temperature 98.1 degrees Fahrenheit, pulse of 85, respiratory rate of 20, blood pressure 123/73, O2 sats were 93%, inspired oxygen concentration at that time was not recorded. When I stopped by to see him, O2 sats were 100% on 2 liters nasal cannula. GENERAL: He is a young, thin male. Normocephalic, atraumatic, resting in bed with normal respiratory effort at rest. HEAD, EYES, EARS, NOSE AND THROAT Anicteric. No conjunctival erythema. Oropharynx was moist. NECK: No gross jugular venous distention. No thyromegaly. Grossly, there were no palpable lymph nodes in the supraclavicular or submandibular lymph node chains. LUNGS: Auscultation of both lung lau unremarkable. Good bilateral air movement. No wheezing, no rhonchi. HEART: Sounds 1 and 2 were heard. There were regular in rate and rhythm at the time of my evaluation without overt rubs or murmurs. ABDOMEN: Soft, full, bowel sounds are positive, nontender, no palpable hepatosplenomegaly. EXTREMITIES: Without overt digital clubbing or cyanosis, no pedal edema. Pedal pulses are 2+ bilaterally. NEUROLOGIC: Pupils are equal, round and reactive to light. Extraocular muscle movements are intact. Pupils 4 mm. SKIN: Normal turgor without overt cellulitis or rash and the areas examined. PSYCHIATRIC: Mood was normal. Affect was appropriate. Had intact judgment and insight. LABORATORY DATA: From my review are as follows: White cell count 6600, hemoglobin 15.0, hematocrit 44.6, platelet count 245. INR 1.01. Serum sodium 136, potassium 3.9, chloride 100, bicarbonate 24, BUN 5, creatinine 0.9, glucose 87. Magnesium within normal limits. CPK within normal limits. No microbiology studies for my review. Chest x-ray has been reviewed as well as a CT scan of the chest. Today's chest x-ray shows full reexpansion of the lungs. The CT scan has not been read by my read; however, I do not see any significant cystic lung disease or any significant emphysematous changes. There is motion artifact that affects interpretation. The chest tube is in place, the areas of small volume atelectasis probably secondary to splinting and pain. No gross pneumothorax on the CT. No gross bony fracture. ASSESSMENT: Spontaneous left pneumothorax with full reexpansion, ____ chest tube. PLAN: I do not see any evidence of significant congenital disease, emphysematous disease. This seems to be a spontaneous one-time occurrence. It is unclear what the provoking factor was. If there was indeed any maneuver that increased intrathoracic pressure, he denied significant weight lifting at work or in a recreationally period. He denies tobacco use or abuse. There is no family history of similar disorder. His mother who walked into the room while I was evaluating him, agrees to the history that he has given me. The Heimlich valve is in place. It is doing its job. I will defer to the surgeon in terms of pulling the chest tube. I do agree if we have a second occurrence, he will need further workup. However, again I do not see any significant apical blebs or other lesions on the CT scan. It was not a high-resolution CT scan, but I believe it suffices for now. Continued tobacco abstinence has been recommended. I have told him that if his similar symptoms develop, he should come to the emergency room for chest x-ray as soon as possible. Otherwise, he is appropriately on DVT prophylaxis. Flu and pneumonia vaccination will be addressed per protocol. Thank you very much for the consult. We will follow along and make further recommendations as picture progresses/becomes clearer. TID: [id number] RECEIPT: [id number] JOHNNY/JAIMIE/FABI
--- NOTE | 2021-02-09 07:55 | XRay Report ---
CHEST 1 VIEW INDICATION: f/u pneumothorax. COMPARISON: Yesterday FINDINGS: Support devices: Small caliber left chest tube is unchanged terminating at the level of the aortic kn ob. Heart: Within normal limits. Lungs/Pleura: No acute air space or interstitial disease. No appreciable pneumothorax. Additional findings: None. IMPRESSION: No acute findings. Signer Name: Chai Avina Jr, MD Signed: 02/09/2021 7:51 AM Workstation Name: [id number]
[2021-02-09] MEDS: HEPARIN 5,000 UNIT/1 ML VIAL SUB-Q SCH ×2 (10:49→21:45)
--- NOTE | 2021-02-09 12:07 | Progress Note ---
Assessment and Plan Assessment and plan: 26 -[place] male with no significant past medical history who presents to [facility] ED with complaints of left-sided thoracic back pain and difficulty completing. Patient states his symptoms began earlier this morning. He works from home and was sitting at his desk started experiencing sharp intermittent 4/10 thoracic pain. Upon standing and walking down the stairs his pain became more intense (now 8/10) and constant. He noticed that it was getting more difficult for him to breathe, he decided to call EMS for further evaluation and treatment. Denies: Fever, chills, cough, headache, abdominal pain, nausea, vomiting diarrhea, constipation, hematochezia, hemoptysis, history of restrictive airway disease, or recent sick contact Chest x-ray: No acute findings. Prior noted left left pneumothorax resolved. Chest tube retracted to the area of the aortic knob 02/09: Repeat xray shows resolution, discussed with surgeon pigtail catheter removed today recommend to repeat x-ray in 2 hours and also in a.m. This has been discussed with the patient in detail. If if no repeat pneumothorax noted on x-ray in a.m. patient can be discharged Spontaneous left-sided pneumothorax -Initial CXR revealed Large left pneumothorax -Chest Tube placed in ED -Repeat CXR showed reexpansion of left lung with no visualized pneumothorax after chest tube placement -CT Chest negative -Supportive care -Pulmonary (Dr. Wallace) consulted in ED with plans to see pt in am -May require op f/u with pulmonary Difficulty in breathing -Secondary to #1 -Has since resolved since placement of chest tube -Presently on room air with saturation of 100% Marijuana use -Reports chronic marijuana use 3 times per week -Counseled for cessation DVT PPX -On Heparin 02/08: Surgery consulted to assist with management of chest tube. Repeat chest x-ray shows resolution. Continue to manage pain control. Further plan pending surgery evaluation. Counseling provided to the patient on need to quit nicotine use as he states that he smokes some who. He has a substance percentage of nicotine in it. 50 minutes counseling provided History Interval history: Patient seen and examined this morning reports, no new chest pain. Hospitalist Physical - Physical exam Narrative exam: VITAL SIGNS: Reviewed. GENERAL: The patient appears normally developed, Vital signs as documented. HEAD: No signs of head trauma. EYES: Pupils are equal. Extraocular motions intact. EARS: Hearing grossly intact. MOUTH: Oropharynx is normal. NECK: No adenopathy, no JVD. CHEST: Chest with clear breath sounds bilaterally. Chest tube to the left side dressing in place tube not connected to-. No wheezes, rales, or rhonchi. CARDIAC: Regular rate and rhythm. S1 and S2, without murmurs, gallops, or rubs. VASCULAR: No Edema. Peripheral pulses normal and equal in all extremities. ABDOMEN: Soft, non tender and non distended. No rebound or guarding, and no masses palpated. Bowel Sounds normal. MUSCULOSKELETAL: Good range of motion of all major joints. Extremities without clubbing, cyanosis or edema. NEUROLOGIC EXAM: Alert and oriented x 3 No focal sensory or strength deficits. Speech normal. Follows commands. PSYCHIATRIC: Mood normal. SKIN: detail exam as documented in skin assessment - Constitutional Vitals: Temp Pulse Resp BP Pulse Ox 98.6 F 73 18 112/64 96 02/09/21 04:52 02/09/21 04:52 02/09/21 05:45 02/09/21 04:52 02/09/21 04:52 Results - Labs CBC & Chem 7: 02/07/21 19:06 02/07/21 19:06 Labs: Laboratory Last Values WBC 6.6 K/mm3 (4.5-11.0) 02/07/21 19:06 RBC 4.82 M/mm3 (3.65-5.03) 02/07/21 19:06 Hgb 15.0 gm/dl (11.8-15.2) 02/07/21 19:06 Hct 44.6 % (35.5-45.6) 02/07/21 19:06 MCV 93 fl (84-94) 02/07/21 19:06 MCH 31 pg (28-32) 02/07/21 19:06 MCHC 34 % (32-34) 02/07/21 19:06 RDW 12.3 % (13.2-15.2) L 02/07/21 19:06 Plt Count 245 K/mm3 (140-440) 02/07/21 19:06 PT 13.8 Sec. (12.2-14.9) 02/07/21 19:06 INR 1.01 (0.87-1.13) 02/07/21 19:06 APTT 29.4 Sec. (24.2-36.6) 02/07/21 19:06 Sodium 136 mmol/L (137-145) L 02/07/21 19:06 Potassium 3.9 mmol/L (3.6-5.0) 02/07/21 19:06 Chloride 100.2 mmol/L (98-107) 02/07/21 19:06 Carbon Dioxide 24 mmol/L (22-30) 02/07/21 19:06 Anion Gap 16 mmol/L 02/07/21 19:06 BUN 5 mg/dL (9-20) L 02/07/21 19:06 Creatinine 0.9 mg/dL (0.8-1.3) 02/07/21 19:06 Estimated GFR > 60 ml/min 02/07/21 19:06 BUN/Creatinine Ratio 6 % 02/07/21 19:06 Glucose 87 mg/dL (75-100) 02/07/21 19:06 Calcium 9.1 mg/dL (8.4-10.2) 02/07/21 19:06 Magnesium 1.80 mg/dL (1.7-2.3) 02/07/21 19:06 Total Creatine Kinase 158 units/L (55-170) 02/07/21 19:06 Hall/IV: Voiding Method Urinal Active Medications - Current Medications Current Medications: Generic Name Dose Route Start Last Admin Trade Name Freq PRN Reason Stop Dose Admin Acetaminophen 650 mg 02/07/21 21:41 Acetaminophen 325 Mg Tab PO Q4H PRN Pain MILD(1-3)/Fever >100.5/LESTER Albuterol 2.5 mg 02/07/21 21:41 Albuterol 2.5 Mg/3 Ml Nebu IH Q3HRT PRN Shortness Of Breath Heparin Sodium (Porcine) 5,000 unit 02/07/21 22:00 02/09/21 10:49 Heparin 5,000 Unit/1 Ml Vial SUB-Q 5,000 unit Q12HR KAREN Administration Hydromorphone HCl 0.5 mg 02/07/21 21:43 02/08/21 02:34 Hydromorphone 1 Mg/1 Ml Inj IV 0.5 mg Q3H PRN Administration Pain , Severe (7-10) Morphine Sulfate 2 mg 02/07/21 21:43 02/09/21 05:15 Morphine 2 Mg/1 Ml Inj IV 2 mg Q4H PRN Administration Pain, Moderate (4-6) Naloxone HCl 0.1 mg 02/07/21 21:43 Naloxone 0.4 Mg/1 Ml Inj IV Q2MIN PRN Res Rate </= 8 or 02 SAT < 92% Ondansetron HCl 4 mg 02/07/21 21:41 Ondansetron 4 Mg/2 Ml Inj IV Q6H PRN Nausea And Vomiting Sodium Chloride 10 ml 02/07/21 22:00 02/09/21 10:48 Sodium Chloride 0.9% 10 Ml Flush Syringe IV 10 ml BID KAREN Administration Sodium Chloride 10 ml 02/07/21 21:41 Sodium Chloride 0.9% 10 Ml Flush Syringe IV PRN PRN LINE FLUSH
--- NOTE | 2021-02-09 13:09 | Progress Note ---
Assessment and Plan 26-year-old male with left-sided spontaneous pneumothorax status post left chest tube placement. Pneumothorax had resolved on chest x-ray. Patient is stable and asymptomatic. Chest tube was removed without incident and chest x-ray after removal of chest tube showed preliminarily no pneumothorax. Recommend follow-up chest x-ray in a.m. to verify continued reinflation of left lung. No need for follow-up with general surgery as an outpatient. Patient may remove dressing in 48 hours. Subjective Date of service: 02/09/21 Narrative: No acute events overnight. Patient denies any shortness of breath. Patient is able to get 2500 on his incentive spirometry. Chest x-ray from this morning shows no pneumothorax. Objective Vital Signs - 12hr 02/09/21 02/09/21 02/09/21 04:52 05:15 05:45 Temperature 98.6 F Pulse Rate 73 Respiratory 18 18 18 Rate Blood Pressure 112/64 O2 Sat by Pulse 96 Oximetry - General physical appearance well developed, no distress, no pain - Respiratory normal expansion, normal respiratory effort, other (Chest tube in place) - Labs 02/07/21 19:06 02/07/21 19:06
--- NOTE | 2021-02-09 13:12 | XRay Report ---
CHEST 1 VIEW 02/09/2021 11:57 AM INDICATION / CLINICAL INFORMATION: f/u s/p chest tube removal. COMPARISON: 02/09/2021 FINDINGS: SUPPORT DEVICES: Status post left chest tube removal. HEART / MEDIASTINUM: No significant abnormality. LUNGS / PLEURA: No significant pulmonary or pleural abnormality. No pneumothorax. ADDITIONAL FINDINGS: No significant additional findings. IMPRESSION: 1. No acute findings. Signer Name: César Still MD Signed: 02/09/2021 1:08 PM Workstation Name: [id number]
--- NOTE | 2021-02-09 16:41 | Progress Note ---
Assessment and Plan Spontaneous left pneumothorax - continue to wean supplemental oxygen to keep O2 sats > 90% - chest tube removed; no recurrent PTX on CXR so far - continue incentive spirometry - serial CXR's for monitoring PTX - prn bronchodilators (ARIADNA) with pulm hygiene per RT - avoid nephrotoxins, renally dose all medications - mobility protocols to prevent pressure ulcers - PT/OT as tolerated - prn accuchecks with glycemic control per SSI for target blood glucose < 180 mg/dL - continued tobacco abstinence strongly counseled at the bedside - home oxygen evaluation at discharge - GI & VTE prophylaxis - Flu & pneumovax per protocol - Pulmonary out patient follow up for PFTs and optimization of respiratory status - prn analgesia per pain score - continue other care per attending / other consultants ... re-evaluate in am & prn Subjective Date of service: 02/09/21 Principal diagnosis: Spontaneous left pneumothorax Interval history: Patient is seen today for: Spontaneous left pneumothorax Seen and examined at bedside; 24hour events reviewed; nursing and respiratory care staff consulted; no adverse overnight events reported to me; resting peacefully in bed; denies chest pain or SOB Objective Vital Signs - 12hr 02/09/21 02/09/21 02/09/21 04:52 05:15 05:45 Temperature 98.6 F Pulse Rate 73 Respiratory 18 18 18 Rate Blood Pressure 112/64 O2 Sat by Pulse 96 Oximetry 02/09/21 11:12 Temperature 99.0 F Pulse Rate 70 Respiratory 18 Rate Blood Pressure 116/59 O2 Sat by Pulse 98 Oximetry Constitutional: no acute distress Eyes: non-icteric ENT: oropharynx moist Neck: supple Effort: mildly labored Ascultation: Bilateral: clear Percussion: Bilateral: not dull Cardiovascular: regular rate and rhythm Gastrointestinal: normoactive bowel sounds, soft, non-tender, non-distended Integumentary: normal Extremities: no cyanosis, no edema, pulses normal, no ischemia or petechiae Neurologic: non-focal exam, pupils equal and round, CN II-XII normal, motor strength normal and Psychiatric: mood appropriate, affect normal CBC and BMP: 02/07/21 19:06 02/07/21 19:06 ABG, PT/INR, D-dimer: PT/INR, D-dimer PT 13.8 Sec. (12.2-14.9) 02/07/21 19:06 INR 1.01 (0.87-1.13) 02/07/21 19:06 Abnormal lab findings: Abnormal Labs 02/07/21 02/07/21 19:06 19:06 RDW 12.3 L Sodium 136 L BUN 5 L Chest x-ray: image reviewed (no PTX) Allied health notes reviewed: nursing
--- NOTE | 2021-02-10 08:36 | XRay Report ---
CHEST 1 VIEW 0800 INDICATION / CLINICAL INFORMATION: S/P chest tube removal. COMPARISON: 02/09/2021 FINDINGS: SUPPORT DEVICES: None HEART / MEDIASTINUM: No significant abnormality. LUNGS / PLEURA: No significant pulmonary or pleural abnormality. No pneumothorax. ADDITIONAL FINDINGS: No significant additional findings. IMPRESSION: No significant acute abnormality Signer Name: Eric Keita MD Signed: 02/10/2021 8:32 AM Workstation Name: [id number]
[2021-02-10] MEDS: HEPARIN 5,000 UNIT/1 ML VIAL SUB-Q SCH (11:17)
--- NOTE | 2021-02-10 11:17 | Discharge Summary ---
Providers - Providers Date of Admission: 02/08/21 10:15 Attending physician: SHEREEN SMITH MD 02/07/21 18:55 Consult to Physician [CONS] Urgent Comment: Consulting Provider: TIFFANIE WILSON Physician Instructions: Reason For Exam: Spontaneous pneumothorax 02/08/21 10:11 Consult to Physician [CONS] Routine Comment: Consulting Provider: ALEXANDRIA SHARPE Physician Instructions: Reason For Exam: PENUMOTHORAX, CHEST TUBE MANAGEMENT Primary care physician: SHELTER DIRECTOR Hospitalization Reason for admission: shortness of breath Condition: Good Hospital course: 26 -[place] male with no significant past medical history who presents to [facility] ED with complaints of left-sided thoracic back pain and difficulty comp leting. Patient states his symptoms began earlier this morning. He works from home and was sitting at his desk started experiencing sharp intermittent 4/10 thoracic pain. Upon standing and walking down the stairs his pain became more intense (now 8/10) and constant. He noticed that it was getting more difficult for him to breathe, he decided to call EMS for further evaluation and treatment. Denies: Fever, chills, cough, headache, abdominal pain, nausea, vomiting diarrhea, constipation, hematochezia, hemoptysis, history of restrictive airway disease, or recent sick contact Chest x-ray: No acute findings. Prior noted left left pneumothorax resolved. Chest tube retracted to the area of the aortic knob 02/08: Surgery consulted to assist with management of chest tube. Repeat chest x-ray shows resolution. Continue to manage pain control. Further plan pending surgery evaluation. Counseling provided to the patient on need to quit nicotine use as he states that he smokes some who. He has a substance percentage of nicotine in it. 50 minutes counseling provided 02/09: Repeat xray shows resolution, discussed with surgeon pigtail catheter removed today recommend to repeat x-ray in 2 hours and also in a.m. This has been discussed with the patient in detail. If if no repeat pneumothorax noted on x-ray in a.m. patient can be discharged. 02/10: Patient clinical stable, no new pneumothorax noted, no breathing compromise. Spontaneous left-sided pneumothorax -Initial CXR revealed Large left pneumothorax -Chest Tube placed in ED -Repeat CXR showed reexpansion of left lung with no visualized pneumothorax after chest tube placement -CT Chest negative -Supportive care -Pulmonary (Dr. Wallace) consulted in ED with plans to see pt in am -May require op f/u with pulmonary Acute Respiratory failure -Secondary to #1 -Has since resolved since placement of chest tube -Presently on room air with saturation of 100% Marijuana use -Reports chronic marijuana use 3 times per week -Counseled for cessation Disposition: DC-01 TO HOME OR SELFCARE Final Discharge Diagnosis (Prints w/discharge instructions): Pneumothorax Time spent for discharge: 35 mins Core Measure Documentation - Palliative Care Palliative Care/ Comfort Measures: Not Applicable - Core Measures Any of the following diagnoses?: none Exam - Physical Exam Narrative exam: VITAL SIGNS: Reviewed. GENERAL: The patient appears normally developed, Vital signs as documented. HEAD: No signs of head trauma. EYES: Pupils are equal. Extraocular motions intact. EARS: Hearing grossly intact. MOUTH: Oropharynx is normal. NECK: No adenopathy, no JVD. CHEST: Chest with clear breath sounds bilaterally. dressing over prior chest tube site. No wheezes, rales, or rhonchi. CARDIAC: Regular rate and rhythm. S1 and S2, without murmurs, gallops, or rubs. VASCULAR: No Edema. Peripheral pulses normal and equal in all extremities. ABDOMEN: Soft, non tender and non distended. No rebound or guarding, and no masses palpated. Bowel Sounds normal. MUSCULOSKELETAL: Good range of motion of all major joints. Extremities without clubbing, cyanosis or edema. NEUROLOGIC EXAM: Alert and oriented x 3 No focal sensory or strength de ficits. Speech normal. Follows commands. PSYCHIATRIC: Mood normal. SKIN: detail exam as documented in skin assessment - Constitutional Vitals: Temp Pulse Resp BP Pulse Ox 98.2 F 69 20 101/62 95 02/10/21 05:06 02/10/21 05:07 02/10/21 05:06 02/10/21 05:06 02/10/21 09:04 Plan Activity: advance as tolerated, fall precautions Diet: regular Special Instructions: smoking cessation Follow up with: PRIMARY CAREMD [Primary Care Provider] - 3-5 Days THOM ENRIQUE MD [Staff Physician] - 7 Days Prescriptions: Naproxen [Naprosyn TAB] 500 mg PO BID #14 tablet
[2021-02-10 12:58] VITALS: BP 115/85
--- NOTE | 2021-02-13 07:44 | Cat Scan Report ---
CT CHEST WITHOUT CONTRAST INDICATION / CLINICAL INFORMATION: Pneumothorax, status post pigtail placement.. TECHNIQUE: Axial CT images were obtained through the chest without contrast. All CT scans at this location are p erformed using CT dose reduction for ALARA by means of automated exposure control. COMPARISON: Chest x-ray earlier today FINDINGS: HEART: No significant abnormality. THORACIC AORTA: No significant abnormality. MEDIASTINUM and CECILIA: No significant abnormality.No mediastinal hematoma or pneumomediastinum is seen . LUNGS: No acute air space or interstitial disease. Linear atelectasis left upper, lower lobes and li ngula. Right lung clear PLEURA: No significant pleural effusion. There is a tiny left pneumothorax along the medial apical pl eural measuring 5 mm image 31 ADDITIONAL FINDINGS: The left pigtail chest tube has its tip near the left medial lung apex and could be pulled back about 5 cm for more optimal placement. UPPER ABDOMEN: No significant abnormality. SKELETAL SYSTEM: No significant abnormality. IMPRESSION: 1. No significant abnormality. Signer Name: Arron Malik MD Signed: 02/07/2021 8:41 PM Workstation Name: [id number]
== END 2021-02-10 13:45 | disposition home or self-care (01) | DRG 199 ==
LOC: ED 17:34 → 3A 21:41 → OBSVTOIN 02-08 10:15
PROVIDERS: ADMIT Internal Medicine Geriatric Medicine; ATTEND Internal Medicine
PROC: 0W9B30Z Drainage of Left Pleural Cavity with Drainage Device, Percutaneous Approach (ICD-10-PCS; principal; 2021-02-08)
DX: J93.83 Other pneumothorax (principal); J96.00 Acute respiratory failure, unspecified whether with hypoxia or hypercapnia; Z20.822 Contact with and (suspected) exposure to COVID-19; F12.90 Cannabis use, unspecified, uncomplicated; Z71.51 Drug abuse counseling and surveillance of drug abuser
CPT/HCPCS: 36415; 71045; 71047; 71250; 80048; 82550; 83735; 85027; 85610; 85730; 93005; G0378; J1170; J1644; J2270; J3010; J7030; U0003